=== PATIENT | female | born 1990 | race Two or more races ===

== ENCOUNTER 2020-05-18 12:59 | Outpatient (REF) | payer OTHER, SELFPAY ==
[2020-05-18 15:15] LABS: Syphilis Screen Nonreactive (Nonreactive)
[2020-05-19 04:08] LABS: HBc Num1 0.13 S/CO (0.00-0.79); HIV AB/AG Nonreactive (Nonreactive); HIV Num 1 0.07 S/CO (0.00-0.99); Hepatitis B Core Antibody Nonreactive (Nonreactive)
[2020-05-19 04:29] LABS: ~Hepatitis C Antibody Nonreactive (Nonreactive)
[2020-05-19 09:42] LABS: BV Int Neg Control Negative (Negative); BV Int Pos Control Positive (Positive)
[2020-05-26 05:53] LABS: HPV 16 RNA NOT DETECTED (NOT DETECTED); HPV mRNA E6/E7 rflx Detected (Not Detected)
[2020-06-11 14:21] LABS: CT PCR NOT DETECTED (Not Detect.); NG PCR NOT DETECTED (Not Detect.)
== END 2020-05-18 13:00 | disposition home or self-care (01) ==
LOC: HO.LAB 12:59
PROVIDERS: PCP Internal Medicine; Visit Provider Advanced Practice Midwife
DX: Z01.419 Encounter for gynecological examination (general) (routine) without abnormal findings (principal); Z20.2 Contact with and (suspected) exposure to infections with a predominantly sexual mode of transmission
CPT/HCPCS: 86704; 86780; 86803; 87389; 87480; 87491; 87510; 87591; 87624; 87625; 87660; 88141; 88142

== ENCOUNTER 2020-06-23 13:56 | Outpatient (REF) | payer OTHER, SELFPAY | END 2020-06-23 13:57 | disposition home or self-care (01) | LOC: HO.LAB 13:56 | PROVIDERS: PCP Internal Medicine; Visit Provider Obstetrics & Gynecology | DX: R87.620 Atypical squamous cells of undetermined significance on cytologic smear of vagina (ASC-US) (principal); R87.811 Vaginal high risk human papillomavirus (HPV) DNA test positive | CPT/HCPCS: 57454; 81025; 88305; 88312; 88313; 88341; 88342; 88360 ==

== ENCOUNTER → 2020-07-07 15:52 | Outpatient (BNVA) | payer OTHER, SELFPAY | PROVIDERS: PCP Internal Medicine; Visit Provider Obstetrics & Gynecology ==

== ENCOUNTER 2020-07-18 10:56 | Outpatient (REF) | payer OTHER, SELFPAY ==
--- NOTE | ~2020-07-18 | US_ITS ---
EXAMINATION: US PELVIS CLINICAL INFORMATION: Pain COMPARISON: None TECHNIQUE: Ultrasound of the pelvis is performed using both transabdominal and transvaginal transducers along with Doppler. Transvaginal imaging is performed due to inadequate visualization transabdominally. FINDINGS: The uterus is anteverted and measures 6.8 x 2.9 x 4.5 cm in dimension. There is an IUD in the uterus in satisfactory position. Endometrial thickness is normal measuring 0.3 cm. No focal uterine lesion is seen. There are nabothian cysts in the cervix. The right ovary measures 1.4 x 1.6 x 0.7 cm. The left ovary measures 3.1 x 2.2 x 1.9 cm. There is a small nonspecific 4 x 4 x 5 mm hyperechoic area in the left ovary. There is no fluid in the pelvis. US/US OB transvaginal IMPRESSION: IUD in the uterus in satisfactory position. Small 5 mm nonspecific hyperechoic area in the left ovary.
--- NOTE | ~2020-07-18 | US_ITS ---
EXAMINATION: US PELVIS CLINICAL INFORMATION: Pain COMPARISON: None TECHNIQUE: Ultrasound of the pelvis is performed using both transabdominal and transvaginal transducers along with Doppler. Transvaginal imaging is performed due to inadequate visualization transabdominally. FINDINGS: The uterus is anteverted and measures 6.8 x 2.9 x 4.5 cm in dimension. There is an IUD in the uterus in satisfactory position. Endometrial thickness is normal measuring 0.3 cm. No focal uterine lesion is seen. There are nabothian cysts in the cervix. The right ovary measures 1.4 x 1.6 x 0.7 cm. The left ovary measures 3.1 x 2.2 x 1.9 cm. There is a small nonspecific 4 x 4 x 5 mm hyperechoic area in the left ovary. There is no fluid in the pelvis. US/US pelvic complete IMPRESSION: IUD in the uterus in satisfactory position. Small 5 mm nonspecific hyperechoic area in the left ovary.
== END 2020-07-18 10:57 | disposition home or self-care (01) ==
LOC: HO.US 10:56
PROVIDERS: Visit Provider Obstetrics & Gynecology
DX: R10.2 Pelvic and perineal pain (principal)
CPT/HCPCS: 76817; 76830; 76856

== ENCOUNTER 2020-07-25 10:15 | Outpatient (REF) | payer OTHER, SELFPAY | END 2020-07-25 10:16 | disposition home or self-care (01) | LOC: HO.LAB 10:15 | PROVIDERS: PCP Internal Medicine; Visit Provider Obstetrics & Gynecology | DX: N87.0 Mild cervical dysplasia (principal) | CPT/HCPCS: 57455; 81025; 88305 ==

== ENCOUNTER → 2020-08-08 12:13 | Outpatient (BNVA) | payer OTHER, SELFPAY | PROVIDERS: PCP Internal Medicine; Visit Provider Obstetrics & Gynecology ==

== ENCOUNTER 2021-05-23 12:48 | Outpatient (REF) | payer OTHER, SELFPAY ==
[2021-05-24 03:42] LABS: Syphilis Screen Nonreactive (Nonreactive)
[2021-05-24 03:52] LABS: HBc Num1 0.15 S/CO (0.00-0.79); HIV AB/AG Nonreactive (Nonreactive); HIV Num 1 0.09 S/CO (0.00-0.99); Hepatitis B Core Antibody Nonreactive (Nonreactive)
[2021-05-24 04:03] LABS: CT PCR NOT DETECTED (Not Detect.); NG PCR NOT DETECTED (Not Detect.)
[2021-05-24 04:06] LABS: ~HepC Num1 0.19 S/CO (0.00-0.79); ~Hepatitis C Antibody Nonreactive (Nonreactive)
[2021-05-24 09:36] LABS: BV Int Neg Control Negative (Negative); BV Int Pos Control Positive (Positive)
[2021-05-26 02:22] LABS: HPV mRNA E6/E7 rflx Not Detected (Not Detected)
== END 2021-05-23 12:49 | disposition home or self-care (01) ==
LOC: HO.LAB 12:48
PROVIDERS: PCP Internal Medicine; Visit Provider Advanced Practice Midwife
DX: Z01.411 Encounter for gynecological examination (general) (routine) with abnormal findings (principal); Z11.51 Encounter for screening for human papillomavirus (HPV); Z11.4 Encounter for screening for human immunodeficiency virus [HIV]; N89.8 Other specified noninflammatory disorders of vagina; L70.9 Acne, unspecified; Z20.2 Contact with and (suspected) exposure to infections with a predominantly sexual mode of transmission
CPT/HCPCS: 36415; 81003; 81025; 86704; 86780; 86803; 87389; 87480; 87491; 87510; 87591; 87624; 87660; 88142

== ENCOUNTER 2022-01-08 13:52 | Outpatient (REF) | payer OTHER, SELFPAY ==
[2022-01-09 04:28] LABS: CT PCR NOT DETECTED (Not Detect.); NG PCR NOT DETECTED (Not Detect.)
[2022-01-09 09:05] LABS: BV Int Neg Control Negative (Negative); BV Int Pos Control Positive (Positive)
== END 2022-01-08 13:53 | disposition home or self-care (01) ==
LOC: HO.LAB 13:52
PROVIDERS: PCP Internal Medicine; Visit Provider Advanced Practice Midwife
DX: Z11.3 Encounter for screening for infections with a predominantly sexual mode of transmission (principal); B37.3 Candidiasis of vulva and vagina; N89.8 Other specified noninflammatory disorders of vagina
CPT/HCPCS: 87480; 87491; 87510; 87591; 87660; 99212

== ENCOUNTER 2022-04-30 10:37 | Outpatient (REF) | payer OTHER, SELFPAY ==
[2022-04-30 12:41] LABS: HBc Num1 0.13 S/CO (0.00-0.79); HIV AB/AG Nonreactive (Nonreactive); HIV Num 1 0.07 S/CO (0.00-0.99); Hepatitis B Core Antibody Nonreactive (Nonreactive); ~HepC Num1 0.13 S/CO (0.00-0.79); ~Hepatitis C Antibody Nonreactive (Nonreactive)
[2022-04-30 12:42] LABS: Syphilis Screen Nonreactive (Nonreactive)
[2022-04-30 15:47] LABS: CT PCR NOT DETECTED (Not Detect.); NG PCR NOT DETECTED (Not Detect.)
[2022-05-01 08:55] LABS: BV Int Neg Control Negative (Negative); BV Int Pos Control Positive (Positive)
== END 2022-04-30 10:38 | disposition home or self-care (01) ==
LOC: HO.LAB 10:37
PROVIDERS: PCP Internal Medicine; Visit Provider Advanced Practice Midwife
DX: N89.8 Other specified noninflammatory disorders of vagina (principal); R10.2 Pelvic and perineal pain; Z11.3 Encounter for screening for infections with a predominantly sexual mode of transmission; Z20.2 Contact with and (suspected) exposure to infections with a predominantly sexual mode of transmission
CPT/HCPCS: 36415; 86704; 86780; 86803; 87389; 87480; 87491; 87510; 87591; 87660; 99212

== ENCOUNTER 2022-06-11 10:40 | Outpatient (REF) | payer OTHER, SELFPAY ==
--- NOTE | ~2022-06-11 | US_ITS ---
EXAMINATION: US PELVIS CLINICAL INFORMATION: Pelvic and perineal pain. COMPARISON: None. TECHNIQUE: Ultrasound of the pelvis is performed using both transabdominal and transvaginal transducers along with Doppler. Transvaginal imaging is performed due to inadequate visualization transabdominally. FINDINGS: Uterus: The uterus is anteverted, anteflexed and measures 8.3 cm in length, 3.4 cm in AP and 3.8 cm transverse dimension There is an IUD within the endometrial canal limiting evaluation of endometrial thickness. The uterus is smooth in contour and has normal myometrial echogenicity. No visible fibroid. Adnexa: The right ovary is not visualized. The left ovary measures 3.2 x 2.1 x 2.7 cm and volume 14.0 mL. There is an anechoic cyst measuring 1.6 x 1.2 x 1.5 cm. There are small round echogenic lesion measuring 0.7 x 0.6 x 0.7 cm. There is no free fluid in cul-de-sac. US/US pelvic and transvaginal IMPRESSION: Unremarkable uterus. IUD is visualized limiting endometrial evaluation. The right ovary is not visualized. There is a small anechoic cyst and a hyperechoic round lesion nonspecific may represent calcification in left ovary. It is stable.
== END 2022-06-11 10:41 | disposition home or self-care (01) ==
LOC: HO.US 10:40
PROVIDERS: Visit Provider Advanced Practice Midwife
DX: R10.2 Pelvic and perineal pain (principal)
CPT/HCPCS: 76830; 76856

== ENCOUNTER 2022-06-18 11:11 | Outpatient (REF) | payer OTHER, SELFPAY ==
[2022-06-19 05:28] LABS: CT PCR NOT DETECTED (Not Detect.); NG PCR NOT DETECTED (Not Detect.)
[2022-06-19 09:42] LABS: BV Int Neg Control Negative (Negative); BV Int Pos Control Positive (Positive)
== END 2022-06-18 11:12 | disposition home or self-care (01) ==
LOC: HO.LAB 11:11
PROVIDERS: PCP Internal Medicine; Visit Provider Advanced Practice Midwife
DX: R10.2 Pelvic and perineal pain (principal); N89.8 Other specified noninflammatory disorders of vagina; R93.5 Abnormal findings on diagnostic imaging of other abdominal regions, including retroperitoneum; Z71.2 Person consulting for explanation of examination or test findings
CPT/HCPCS: 0353U; 87480; 87510; 87660; 99212

== ENCOUNTER 2022-06-18 12:37 | Outpatient (REF) | payer OTHER, SELFPAY | END 2022-06-18 12:38 | disposition home or self-care (01) | LOC: HO.LNP 12:37 | PROVIDERS: Visit Provider Advanced Practice Midwife | DX: Z13.89 Encounter for screening for other disorder (principal) ==

== ENCOUNTER 2022-07-05 09:42 | Outpatient (REF) | payer OTHER, SELFPAY ==
--- NOTE | ~2022-07-05 | MR_ITS ---
EXAMINATION: MRI PELVIS WITH AND WITHOUT CONTRAST CLINICAL INFORMATION: Reason for Exam R93.5 - ANECHOIC CYST HYPERECHOIC ROUND LESION LEFT OVARY COMPARISON: Ultrasound from 06/11/2022 TECHNIQUE: Multiple routine MRI sequences through the pelvis were obtained on a high-field 1.5 Lav[place] MRI before and after the uneventful administration of 8 mL of Gadavist gadolinium-based IV contrast. FINDINGS: UTERUS: Anteverted uterus has a normal configuration and measures 8.5 cm [id number] x 3.6 cm anterior-posterior x 5 cm transverse. No abnormal endometrial thickening. There is an IUD in place in normal positioning. Junctional zone is normal in signal and thickness. No focal uterine mass seen. CERVIX: Normal. VAGINA: Normal; no mass seen. RIGHT OVARY: The right ovary is not clearly visualized. There is no right adnexal mass. LEFT OVARY: The left ovary measures 2.8 x 2.3 x 2.2 cm. There are multiple follicles identified in the ovary. The dominant measures 1.8 cm and has somewhat mixed signal, showing central increased signal with more peripheral thickened wall. This could be a corpus luteum. There is no suspicious mass identified. No definite correlate to the subcentimeter hyperechoic focus in on prior ultrasound. Stability of this finding over time is reassuring. This could be a small dermoid that is not well resolved on the MRI given the size. KIDNEYS: Two normally positioned kidneys are seen. No hydronephrosis. BLADDER: Urinary bladder normal. PELVIC FREE FLUID: Trace pelvic free fluid which is likely physiologic. LYMPH NODES: No pathologically enlarged lymph nodes. OSSEOUS STRUCTURES: No acute or suspicious osseous abnormalities. MR/MR pelvis wo/w con IMPRESSION: 1. No suspicious left ovarian mass. There are multiple follicles identified in the left ovary. No definite correlate to the subcentimeter hyperechoic focus in the left ovary on prior ultrasound. Stability of this finding over time is reassuring. This could be a small dermoid that is not well resolved on the MRI. If clinically indicated this could be followed with ultrasound, as visualized. 2. IUD in place in normal positioning.
== END 2022-07-05 09:43 | disposition home or self-care (01) ==
LOC: HO.MRI 09:42
PROVIDERS: PCP Internal Medicine; Visit Provider Advanced Practice Midwife
DX: R93.5 Abnormal findings on diagnostic imaging of other abdominal regions, including retroperitoneum (principal)
CPT/HCPCS: 72197; A9585

== ENCOUNTER 2022-08-08 11:01 | Outpatient (REF) | payer OTHER, SELFPAY ==
[2022-08-09 09:38] LABS: BV Int Neg Control Negative (Negative); BV Int Pos Control Positive (Positive)
== END 2022-08-08 11:02 | disposition home or self-care (01) ==
LOC: HO.LAB 11:01
PROVIDERS: PCP Internal Medicine; Visit Provider Advanced Practice Midwife
DX: N89.8 Other specified noninflammatory disorders of vagina (principal)
CPT/HCPCS: 87480; 87510; 87660

== ENCOUNTER 2022-08-08 11:48 | Outpatient (REF) | payer OTHER, SELFPAY ==
[2022-08-14 10:03] LABS: HPV mRNA E6/E7 rflx Detected (Not Detected)
[2022-08-14 10:08] LABS: HPV 16 RNA NOT DETECTED (NOT DETECTED)
== END 2022-08-08 11:49 | disposition home or self-care (01) ==
LOC: HO.LNP 11:48
PROVIDERS: Visit Provider Advanced Practice Midwife
DX: Z01.419 Encounter for gynecological examination (general) (routine) without abnormal findings (principal); Z11.51 Encounter for screening for human papillomavirus (HPV)
CPT/HCPCS: 87624; 87625; 88142

== ENCOUNTER 2022-11-27 13:21 | Outpatient (REF) | payer OTHER, SELFPAY ==
--- NOTE | ~2022-11-27 | US_ITS ---
EXAM: Pelvic Ultrasound CLINICAL INDICATION: Benign neoplasm left ovary COMPARISON: Pelvic MRI 07/05/2022 and pelvic ultrasound 06/11/2022 TECHNIQUE: The pelvis was evaluated using transabdominal and transvaginal imaging. FINDINGS: The uterus measures 8.3 x 4.0 x 4.9 cm in longitudinal by AP by transverse dimension. Linear echogenic structure within the endometrium is consistent with a properly placed IUD. The endometrium measures approximately 3 mm in thickness. The left ovary measures approximately 3.1 x 2.2 x 2.1 cm and is again noted to contain a 9 mm echogenic lesion (previously 7 mm). There is also a suspected approximately 1.6 cm corpus luteum within the left ovary. The right ovary was not clearly visualized. There is no free fluid in the pelvis. US/US pelvic and transvaginal IMPRESSION: 1. Linear echogenic structure within the endometrium is consistent with a properly placed IUD. 2. Slight interval increase in size of now 9 mm echogenic lesion of the left ovary. Continued attention on follow-up imaging recommended.
== END 2022-11-27 13:22 | disposition home or self-care (01) ==
LOC: HO.US 13:21
PROVIDERS: PCP Internal Medicine; Visit Provider Advanced Practice Midwife
DX: D27.1 Benign neoplasm of left ovary (principal)
CPT/HCPCS: 76830; 76856

== ENCOUNTER 2022-12-21 14:06 | Outpatient (AMB) | payer OTHER, SELFPAY ==
[2022-12-21 14:20] VITALS: BP 114/68; BMI 28.7
--- NOTE | 2022-12-21 14:20 | MHC.OFFVIS ---
Intake Vital Signs 12/21/22 14:20 Height 5 ft 6 in Weight 178 lb BMI 28.7 BP 114/68 Intake Visit Reasons: Ultra sound follow up Intake Note: The patient agreed to use of a associate medical director during this encounter. Scribed for RAFFAELE Dixon by Geovanna Lorenzo associate medical director, on 12/21/2022 at 2:50 pm EST. Musical Instrument Mechanic Required: No Allergies No Known Allergies [No Known Allergies*] Allergy (Verified 12/21/22 14:21) Is last menstrual period known: No Post menopausal: No HPI HPI Comments History of Present Illness Details She is here to discuss US results regarding dermoid cyst of left ovary. Reports occasional pelvic pain. She is interested in knowing her options of removal and reports she has done her research on fibroids. [facility] Medical History Cervicitis [place] I (cervical intraepithelial neoplasia I) Dermoid cyst of left ovary IUD strings lost Surgical History H/O ovarian cystectomy History of appendectomy Hx of cholecystectomy LAP-BAND surgery status Family History Mother High blood pressure Hyperlipemia Father High blood pressure Social History Alcohol intake: never Patient Tobacco Use Status: Never used Tobacco Substance Use Type: Marijuana Sexual orientation: Straight/Heterosexual Female Reproductive History Menstrual Age of Menarche: 10 control method: progestin IUCD Date of last pap smear: 08/08/22 (ASCUS +HPV) History of abnormal pap smear: Yes Physical Exam Vital Signs: Last Vital Signs BP 114/68 12/21/22 14:20 BMI result Body Mass Index 28.7 Const General: cooperative, healthy appearing, comfortable, no acute distress, well developed, alert and awake Results Reviewed Results Reviewed: EXAM: Pelvic Ultrasound CLINICAL INDICATION: Benign neoplasm left ovary COMPARISON: Pelvic MRI 07/05/2022 and pelvic ultrasound 06/11/2022 TECHNIQUE:? The pelvis was evaluated using transabdominal and transvaginal imaging. FINDINGS: The uterus measures 8.3 x 4.0 x 4.9 cm in longitudinal by AP by transverse dimension. Linear echogenic structure within the endometrium is consistent with a properly placed IUD. The endometrium measures approximately 3 mm in thickness. The left ovary measures approximately 3.1 x 2.2 x 2.1 cm and is again noted to contain a 9 mm echogenic lesion (previously 7 mm). There is also a suspected approximately 1.6 cm corpus luteum within the left ovary. The right ovary was not clearly visualized. There is no free fluid in the pelvis. US/US pelvic and transvaginal IMPRESSION: 1.? Linear echogenic structure within the endometrium is consistent with a properly placed IUD. 2.? Slight interval increase in size of now 9 mm echogenic lesion of the left ovary. Continued attention on follow-up imaging recommended. Assessment & Plan Assessment & Plan (1) Encounter to discuss test results: Code(s): Z71.2 - Person consulting for explanation of examination or test findings Plan: Discussed: US findings of: 1.? Linear echogenic structure within the endometrium is consistent with a properly placed IUD. 2.? Slight interval increase in size of now 9 mm echogenic lesion of the left ovary. Continued attention on follow-up imaging recommended. Referral consult with [facility] regarding dermoid cyst. All of her questions and concerns were addressed to the best of my ability and shared decision making. She is agreeable to plan of care. (2) Pelvic pain: Code(s): R10.2 - Pelvic and perineal pain (3) Dermoid cyst of left ovary: Code(s): D27.1 - Benign neoplasm of left ovary Orders: Referrals Gynecologic Oncology Referral D27.1 - Benign neoplasm of left ovary Coding Level of Care Code Est Pt Level 3 (46683) Diagnoses Encounter to discuss test results Z71.2 Pelvic pain R10.2 Dermoid cyst of left ovary D27.1
== END 2022-12-21 15:03 | disposition home or self-care (01) ==
LOC: HO.HWS 14:06
PROVIDERS: PCP Internal Medicine; Visit Provider Advanced Practice Midwife
DX: Z71.2 Person consulting for explanation of examination or test findings (principal); R10.2 Pelvic and perineal pain; D27.1 Benign neoplasm of left ovary
CPT/HCPCS: 99213

== ENCOUNTER → 2022-12-21 14:06 | Outpatient (BNVA) | payer OTHER, SELFPAY | PROVIDERS: PCP Internal Medicine; Visit Provider Advanced Practice Midwife | DX: Z71.2 Person consulting for explanation of examination or test findings (principal); R10.2 Pelvic and perineal pain; D27.1 Benign neoplasm of left ovary | CPT/HCPCS: 99212 ==

== ENCOUNTER 2023-08-28 10:01 | Outpatient (AMB) | payer OTHER, SELFPAY ==
--- NOTE | 2023-08-28 10:03 | MHC.OFFVIS ---
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 Doing well with no concerns. She is taking antibiotics for her acne and feels like she has a yeast infection. She reports follow up at [facility] and MRI planned for her ovarian lesion, seeing her provider next week. Per pt. she was diagnosed with endometriosis and fibrosis. She tries to eat healthy and stays active with exercise. Currently is sexually active. STI screening offered; she accepts. Denies family history of breast, ovarian or colon cancer. Last pap smear 2022, ASCUS/+HPV, prior CINI. [facility] Medical History Dermoid cyst of left ovary IUD strings lost Cervicitis [place] I (cervical intraepithelial neoplasia I) Surgical History Hx of cholecystectomy H/O ovarian cystectomy LAP-BAND surgery status History of appendectomy Family History Mother High blood pressure Hyperlipemia Father High blood pressure Social History Alcohol intake: never Patient Tobacco Use Status: Never used Tobacco Substance Use Type: Marijuana Sexual orientation: Straight/Heterosexual Female Reproductive History Menstrual Age of Menarche: 10 control method: progestin IUCD (Mirena 03/19/18) Total pregnancies: 1 Full term: 1 Number of Living Children: 1 Date of last pap smear: 08/08/22 (ascus +hpv) History of abnormal pap smear: Yes (05/22 ascus +hpv 06/23 colpo [place] 1) Review of Systems Const All systems reviewed & are unremarkable except as noted in HPI and below Reports as per HPI Eyes Reports no additional complaints ENT Reports no additional complaints Card Reports no additional complaints Resp Reports no additional complaints GI Reports as per HPI and Reports no additional complaints Reports as per HPI Musc Reports no additional complaints Skin/Breast Reports as per HPI Neuro Reports no additional complaints Psych Reports no additional complaints Endo Reports no additional complaints Javier/Lymph Reports no additional complaints Aller/Immun Reports no additional complaints Physical Exam Vital Signs: Last Vital Signs BP 112/74 08/28/23 10:05 BMI result Body Mass Index 28.7 Const General: cooperative, healthy appearing, no acute distress, well developed and alert Orientation/consciousness: patient oriented x3 HEENT Head: Yes normal to inspection Eyes General: appearance normal, both eyes and all related structures Neck Neck: Yes normal visual inspection Thyroid: Thyroid normal Chest Chest palpation & inspection: normal inspection of the chest and other (no puckering, dimpling, peau de orange, retraction, discharge, masses) Breast/axilla inspection: normal inspection of the breasts Breast/axilla palpation: normal palpation of the breasts Resp Effort & Inspection: normal respiratory effort GI Inspection: Yes normal to inspection Palpation (GI): Soft to palpation Rectal Exam - Female: deferred Other: External erythema and mild edema General: Yes bladder normal to palpation External Female Exam: normal external appearance and normal appearance of the urethra Speculum Exam - Vagina: normal appearance of the vagina, normal palpation and abnormal vaginal discharge (White and clumpy) Speculum Exam - Cervix: normal appearance of the cervix and normal palpation Bimanual exam- vagina & uterus: normal bimanual exam, normal palpation, uterine size normal, bladder normal to palpation, normal palpation and non-tender Bimanual Exam- Adnexa, other: no masses Skin General skin exam: no rashes or lesions noted Rashes: no rashes Neuro General: patient oriented x3 Cognition (Neuro): normal cognition Extrem General: Yes normal to inspection Psych Attitude: cooperative Thought process: Normal thought process present Assessment & Plan Assessment & Plan (1) Encounter for well woman exam with routine gynecological exam: Code(s): Z01.419 - Encounter for gynecological examination (general) (routine) without abnormal findings (2) Abnormal Pap smear of cervix: Code(s): R87.619 - Unspecified abnormal cytological findings in specimens from cervix uteri Qualifiers: Abnormal Pap type: low grade squamous intraepithelial lesion (LGSIL) Qualified Code(s): R87.612 - Low grade squamous intraepithelial lesion on cytologic smear of cervix (LGSIL) Plan Discussed: Current recommendations for pap smears per ASCCP guidelines. Repeat Pap today. Breast awareness and periodic breast exams. Maintain a healthy lifestyle including a well balanced diet and routine exercise. Find STD blood work. Patient having MRI, if for some reason it is canceled she agrees to call the office to have an ultrasound to determine IUD position. Rx for Diflucan for treatment for yeast symptoms today. Patient verbalizes understanding and agrees to the plan of care. She was given opportunity to ask questions and all questions were answered to the best of my ability. RTO in one year for annual arch support technician examination. This note is constructed using voice recognition software. While every effort has been made to ensure accuracy, log washer errors may have been included. Orders: Orders Bacterial Vaginosis Panel Today N89.8 - Other specified noninflammatory disorders of vagina CT NG by PCR Today N89.8 - Other specified noninflammatory disorders of vagina Pap Smear Today Z01.419 - Encounter for gynecological examination (general) (routine) without abnormal findings Medications: New fluconazole 150 mg PO ONCE 1 day PRN 1 tab 0RF personal Coding Level of Care Code Est Pt Prev Care 18-39y(45002) Diagnoses Encounter for well woman exam with routine gynecological exam Z01.419 Low grade squamous intraepithelial lesion on cytologic smear of cervix (LGSIL) R87.612 Abnormal Pap type: low grade squamous intraepithelial lesion (LGSIL)
[2023-08-28 10:05] VITALS: BP 112/74; BMI 28.7
== END 2023-08-28 10:38 | disposition home or self-care (01) ==
PROVIDERS: PCP Internal Medicine; Visit Provider Advanced Practice Midwife
DX: Z01.419 Encounter for gynecological examination (general) (routine) without abnormal findings (principal); R87.612 Low grade squamous intraepithelial lesion on cytologic smear of cervix (LGSIL)
CPT/HCPCS: 99395

== ENCOUNTER 2023-08-28 10:01 | Outpatient (REF) | payer OTHER, SELFPAY ==
[2023-08-28 18:31] LABS: CT PCR NOT DETECTED (Not Detect.); NG PCR NOT DETECTED (Not Detect.)
[2023-08-29 11:31] LABS: BV Int Neg Control Negative (Negative); BV Int Pos Control Positive (Positive)
== END 2023-08-28 10:02 | disposition home or self-care (01) ==
LOC: HO.LAB 10:01
PROVIDERS: Visit Provider Advanced Practice Midwife
DX: Z01.419 Encounter for gynecological examination (general) (routine) without abnormal findings (principal); N89.8 Other specified noninflammatory disorders of vagina; R87.612 Low grade squamous intraepithelial lesion on cytologic smear of cervix (LGSIL)
CPT/HCPCS: 0353U; 87480; 87510; 87660; 99395

== ENCOUNTER 2023-08-28 10:31 | Outpatient (REF) | payer OTHER, SELFPAY ==
[2023-09-04 03:29] LABS: HPV mRNA E6/E7 rflx Not Detected (Not Detected)
== END 2023-08-28 10:32 | disposition home or self-care (01) ==
LOC: HO.LNP 10:31
PROVIDERS: Visit Provider Advanced Practice Midwife
DX: Z01.419 Encounter for gynecological examination (general) (routine) without abnormal findings (principal); N89.8 Other specified noninflammatory disorders of vagina
CPT/HCPCS: 87624; 88142

== ENCOUNTER 2023-12-24 14:21 | Outpatient (AMB) | payer OTHER, SELFPAY ==
--- OUTSIDE RECORDS SUMMARY | 2023-12-24 14:23 | XMS_ITS | Continuity of Care Document ---
Author Organization [facility] Destiny [facility] Address [address], [address] [place] [address]- Care Team Providers Care Ichthyologist Name Role Phone José Antonio AG, Charlene Guido Primary Care Physician [place] [facility] [place]23 [facility] [address], [address] [place], [place] [address] Attending Physician: Lu Garrido MD Admitting Physician: Lu Garrido MD Referring Physician: Jamia Desai MD Allergies, Adverse Reactions, Alerts No Known Allergies Immunizations Given and Recorded Vaccine Date Status Refusal Reason Influenza Vaccine (oldterm) 1 03/18/08 Given Human Papillomavirus Vaccine 10/14/07 Given Human Papillomavirus Vaccine 03/06/07 Given Human Papillomavirus Vaccine 11/26/06 Given Hepatitis B Vaccine (old term) 2 08/31/04 Given Hepatitis B Vaccine (old term) 3 06/29/04 Given Hepatitis B Vaccine (old term) 4 02/04/04 Given Varicella Virus Vaccine 5 06/29/04 Given Varicella Virus Vaccine 6 02/04/04 Given Poliovirus Vaccine, Inactivated 7 06/29/04 Given Poliovirus Vaccine, Inactivated 8 06/23/90 Given Poliovirus Vaccine, Inactivated 9 04/23/90 Given Poliovirus Vaccine, Inactivated 10 02/19/90 Given Measles/Mumps/Rubella Virus Vaccine 11 02/04/04 Gi ronald Measles/Mumps/Rubella Virus Vaccine 12 10/14/92 Gi ronald tetanus-diphtheria toxoids (Td) 13 02/04/04 Given Diphth/Pertussis, Whl Cell/Tet(oldterm) 14 06/23/90 Given Diphth/Pertussis, Whl Cell/Tet(oldterm) 15 04/23/90 Given Diphth/Pertussis, Whl Cell/Tet(oldterm) 16 02/19/90 Given 1Admin Note: VIS GIven 2Admin Note: HEP B 3Admin Note: HEP B 4Admin Note: HEP B 5Admin Note: FAYE 6Admin Note: FAYE 7Admin Note: IPV/OPV 8Admin Note: IPV/OPV 9Admin Note: IPV/OPV 10Admin Note: IPV/OPV 11Admin Note: MMR 12Admin Note: MMR 13Admin Note: TD 14Admin Note: DTP 15Admin Note: DTP 16Admin Note: DTP Medications amitriptyline 25 mg oral tablet 1 tablet = 25 mg, By Mouth, Daily at bedtime, 0 Refills, Maintenance Start Date: 01/31/11 Status: Ordered Colace sodium 100 mg oral capsule 1 capsule = 100 mg, By Mouth, 2 times a day, PRN Constipation, # 20 capsule, 0 Refills, Maintenance Start Date: 04/17/11 Status: Ordered ibuprofen 600 mg oral tablet 600 mg, 1, tablet, By Mouth, Every 6 hours, # 40 tablet, Refills 0, Tot. Refills 0, Maintenance, 01/23/16 15:17:50, Print Requisition Start Date: 01/23/16 Status: Ordered Pt.'s Own Meds control pill, By Mouth, Daily, Maintenance, 06/12/11 9:07:09 Start Date: 06/12/11 Status: Ordered Problem List Condition Confirmation Course Effective Dates Status Health St atus Informant Ovarian cyst Confirmed Active LBP - Low back pain Confirmed Active OBESITY Confirmed Active Social History Social History Type Response Smoking Status Never (less than 100 in lifetime) entered on: 01/02/23 Sex Patient Care team information Care Team Personnel Name: Hamlet Barkley MD Position: [facility] SOUND CONTROLLER Member Role: Lifetime SOUND CONTROLLER Physician Address: Address: [address] [place], [place] [address] [place] [address]- Name: Charlene Chou NP Position: Reference Physician Member Role: PCP Address: Address: [address] [place] [id number] Name: Yesenia Navarrete Position: [facility] Outreach Member Role: Lifetime Consulting Physician Name: Erica Chavez Position: [facility] Member Role: Primary Care Nurse Care Team Related Persons Name: TITO KRUGER Address: [place] [address] Name: NAMITA MARSHALL Address: home [address] [place] [address] Name: PETRONA KHAN Name: KARLI HART Address: [place] [address]
--- OUTSIDE RECORDS SUMMARY | 2023-12-24 14:23 | XMS_ITS ---
Author Organization [facility] Address [address] [place] [id number] Care Team Providers Care Cargo Mate Name Role Phone JANICE LIZARRAGA, JAKOB Primary Care Provider U RASHMI Resendiz Unavailable [phone] REASON FOR VISIT rfa Medications Medication SIG (Take, Route, Frequency, Duration) Notes Start Date End Date Status diazePAM 10 MG 1 - 2 tablet as needed Orally 1 hour prior to the procedure for 2 days As needed M47.816 Lumbar spondylosis, the patient can request partial refill do not drive after taking this medicine, take after arriving to the pain clinic for the procedure 03/20/2023 Active PriLOSEC OTC 20 MG 1 tablet 30 minutes before morning meal Orally Once a day Active Trey-In-Marlen 75 (15 Fe) MG/ML as directed Orally Active Encounters Encounter Location Date Provider Diagnosis [facility] [address] [place] [phone] 04/06/2023 RASHMI NIELSEN Plan Of Treatment No Information Progress Notes * FRED MARSHALLDOB: 0 (33 yo F)Acc No.[id number]:04/06/2023 Progress Notes Patient:?FRED MARSHALL Provider:?Rashmi Nielsen MD :1990???Age:32 Y???Sex:Female D ate:04/06/2023 Address:[address] [place], [place] [id number] Pcp:JAKOB CAMACHO MD Subjective: * Chief Complaints: * ???1. Rfa. * Medical History:? * Medications:?Taking Trey-In-S ol 75 (15 Fe) MG/ML Solution as directed Orally , Taking PriLOSEC OTC 20 MG Tablet Delayed Release 1 tablet 30 minutes before morning meal Orally Once a day , Taking diazePAM 10 MG Tablet 1 - 2 tablet as needed Orally 1 hour prior to the procedure As needed, Notes to Pharmacist: M47.816 Lumbar spondylosis, the patient can request partial refill do not drive after taking this medicine, take after arriving to the pain clinic for the procedure Objective: * Vitals:? Assessment: Plan: * Treatment: * Images: * Electronic signature of REZA MARVIN MD on 12/24/2023 at 02:23 PM EDT Sign off status: Pending * Provider:?Rashmi Nielsen MD Date:? 023 Generated for Beti simmons/Karen/Carmen on:?12/24/2023 02:23 PM EDT
--- OUTSIDE RECORDS SUMMARY | 2023-12-24 14:23 | XMS_ITS | Continuity of Care Document ---
[facility] Address [address] [facility] [address], [address] [place] [address]- Care Team Providers Care Imaging Account Manager Name Role Phone José Antonio AG, Charlene Guido Primary Care Physician [facility] [place] Date(s): 01/28/23 - 02/27/23 [facility] [address] [facility] [place], [place] [address] Attending Physician: Rachelle Ordonez Admitting Physician: Rachelle Ordonez Referring Physician: AdmtrRachelle Allergies, Adverse Reactions, Alerts No Known Allergies [...] Team Personnel Name: Hamlet Barkley MD Position: [facility] DEPOSITING MACHINE OPERATOR Member Role: Lifetime DEPOSITING MACHINE OPERATOR Physician Address: Address: [address] [place], [place] [address] [place] [address]- Name: Charlene Chou NP Position: Reference Physician Member Role: PCP Address: Address: [address] [place] [id number] Name: Yesenia Navarrete Position: [facility] Outreach Member Role: Lifetime Consulting Physician Name: Erica Chavez Position: [facility] Member Role: Primary Care Nurse Care Team Related Persons Name: TITO KRUGER Address: [place] [address] Name: NAMITA MARSHALL Address: home [address] [place] [address] Name: PETRONA KHAN Name: KARLI HART Address: [place] [address]
--- OUTSIDE RECORDS SUMMARY | 2023-12-24 14:23 | XMS_ITS | Continuity of Care Document ---
Author Organization [facility] Destiny Yost n's [facility] Address [address], 4t [place] [address]- Care Team Providers Care Back Roller Name Role Phone José Antonio AG, Charlene Guido Primary Care Physician [phone] Encounter [facility] ACCT R [id number] Date(s): 10/14/23 - 11/13/23 [facility] Destiny Womenhiyalifes [facility] [address] 4th Floor [place], [place] [address] Attending Physician: Rachelle Ordonez Admitting Physician: Rachelle [...] Care team information Care Team Personnel Name: Filippo LIZARRAGA, Hamlet Cortes Position: [facility] OPTICAL SALES ASSOCIATE MD Member Role: Lifetime OPTICAL SALES ASSOCIATE Physician Address: Address: [address] [place], [place] [address] [address]- Name: Charlene Chou NP Position: Reference Physician Member Role: PCP Address: Address: [address] [place] [address] Medical [place], [place] [address] Name: Yesenia Navarrete Position: [facility] Outreach Member Role: Lifetime Consulting Physician Name: Erica Chavez Position: [facility] Member Role: Primary Care Nurse Care Team Related Persons Name: MOISÉS LOTT Address: home [address] [address] Name: TITO KRUGER Address: [place] [address] Name: NAMITA MARSHALL Address: home [address] [place] [address] Name: PETRONA KHAN Name: KARLI HART Address: [place] [address]
--- OUTSIDE RECORDS SUMMARY | 2023-12-24 14:23 | XMS_ITS | Continuity of Care Document ---
Author Organization [facility] FABRIC AND ACCESSORIES ESTIMATOR Oncolog y Address [address] [place] [address]- Care Team Providers Care School Athletic Director Name Role Phone José Antonio AG, Charlene Guido Primary Care Physician [phone] Encounter [facility] Date(s): 03/22/23 - 04/21/23 [facility] FABRIC AND ACCESSORIES ESTIMATOR Oncology [address] [place], [place] [address] Attending Physician: Rachelle Ordonez Admitting Physician: AdmRachelle thompson Referring Physician: Admtr, Ar8 Allergies, Adverse Reactions, Alerts No Known Allergies [...] Personnel Name: Filippo LIZARRAGA, Hamlet Cortes Position: [facility] QA AUTOMATION ARCHITECT MD Member Role: Lifetime QA AUTOMATION ARCHITECT Physician Address: Address: [address] [place], [place] [address] [place], [place] [address] Name: Charlene Chou NP Position: Reference Physician Member Role: PCP Address: Address: [address] [place] [address] [place], [place] [address] Name: Yesenia Navarrete Position: [facility] Outreach Member Role: Lifetime Consulting Physician Name: Erica Chavez Position: [facility] [place] Member Role: Primary Care Nurse Care Team Related Persons Name: MOISÉS LOTT Address: home [address] [place] [address] Name: TITO KRUGER Address: [place] [address] Name: NAMITA MARSHALL Address: home [address] [place] [address] Name: PETRONA KHAN Name: KARLI HART Address: [place] [address]
--- OUTSIDE RECORDS SUMMARY | 2023-12-24 14:23 | XMS_ITS ---
Author Organization [facility] Address [address] [place] [address] Care Team Providers Care Filter Press Pumper Name Role Phone JANICE LIZARRAGA, JAKOB Primary Care Provider U LOY Resendiz Unavailable [phone] Encounters Encounter Location Date Provider Diagnosis [facility] [address] [place] [address] 03/06/2023 LOY NIELSEN Plan Of Treatment No Information Progress Notes * FRED MARSHALLDOB: 0 (33 yo F)Acc No.[id number]:03/06/2023 Patient:?FRED MARSHALL :1990???Age:32 Y???Sex:Female Address:[address] [place] [address], [address] * * Date:?
--- OUTSIDE RECORDS SUMMARY | 2023-12-24 14:23 | XMS_ITS | Continuity of Care Document ---
Author Organization [facility] Destiny Yost n's [facility] Address [address], 4t [place] [address]- Care Team Providers Care Waxing Machine Operator Helper Name Role Phone José Antonio AG, Charlene Guido Primary Care Physician Encounter [facility] Date(s): 06/04/23 - 10/02/23 [facility] Destiny Kochs [facility] [address] 4th Floor [place], [place] [address] Attending Physician: Lu Garrido MD Admitting Physician: Lu Garrido MD Referring Physician: Charlene Chou NP Allergies, Adverse Reactions, Alerts No Known Allergies [...] Team Personnel Name: Hamlet Barkley MD Position: [facility] TILER'S ASSISTANT Member Role: Lifetime TILER'S ASSISTANT Physician Address: Address: [address] [place] [address]- Name: Charlene Chou NP Position: Reference Physician Member Role: PCP Address: Address: [address] [place] [address] Name: Yesenia Navarrete Position: [facility] Outreach Member Role: Lifetime Consulting Physician Name: Erica Chavez Position: [facility] [place] Member Role: Primary Care Nurse Care Team Related Persons Name: MOISÉS LOTT Address: home [address] [address] Name: TITO KRUGER Address: [place] [address] Name: NAMITA MARSHALL Address: home [address] [place] [address] Name: PETRONA KHAN Name: KARLI HART Address: [place] [address]
--- OUTSIDE RECORDS SUMMARY | 2023-12-24 14:23 | XMS_ITS | Continuity of Care Document ---
Author Organization [facility] SPEECH COMMUNICATION INSTRUCTOR Oncolog y Address [address] [place] [address]- Care Team Providers Care Gas Or Water Meter Installer Name Role Phone José Antonio AG, Charlene Guido Primary Care Physician Encounter [facility] Date(s): 12/24/22 - 01/23/23 [facility] SPEECH COMMUNICATION INSTRUCTOR Oncology [address] [place], [place] [address] Allergies, Adverse Reactions, Alerts No Known Allergies [...] Team Personnel Name: Hamlet Barkley MD Position: [facility] PHARMACIST MD Member Role: Lifetime PHARMACIST Physician Address: Address: [address] [place], [place] [address] [place], [place] [address] Name: Charlene Chou NP Position: Reference Physician Member Role: PCP Address: Address: [address] [place] [address] [place], [place] [address] Name: Yesenia Navarrete Position: [facility] Outreach Member Role: Lifetime Consulting Physician Name: Erica Chavez Position: [facility] [place] Member Role: Primary Care Nurse Care Team Related Persons Name: TITO KRUGER Address: [place] [address] Name: NAMITA MARSHALL Address: home [address] [place] [address] Name: PETRONA KHAN Name: KARLI HART Address: [place] [address]
--- OUTSIDE RECORDS SUMMARY | 2023-12-24 14:23 | XMS_ITS ---
Author Organization [facility] Address [address] [place] [address] Care Team Providers Care Outsole Molder Name Role Phone JANICE LIZARRAGA, JAKOB Primary Care Provider U LOY Resendiz Unavailable [phone] Medications Medication SIG (Take, Route, Frequency, Duration) Notes Start Date End Date Status diazePAM 10 MG 1 - 2 tablet as needed Orally 1 hour prior to the procedure for 2 days As needed M47.816 Lumbar spondylosis, the patient can request partial refill do not drive after taking this medicine, take after arriving to the pain clinic for the procedure 03/20/2023 Active Encounters Encounter Location Date Provider Diagnosis [facility] [address] [place] [address] 03/06/2023 LOY NIELSEN Plan Of Treatment Medication Medication Name Sig Start Date Stop Date Notes diazePAM 10 MG 1 - 2 tablet as need ed Orally 1 hour prior to the procedure for 2 days 03/20/2023 M47.816 Lumbar spondylosis, the patient can request partial refill do not drive after taking this medicine, take after arriving to the pain clinic for the procedure Progress Notes * MARSHALL, FREDDOB: 0 (33 yo F)Acc No.[id number]:03/06/2023 Patient:?FRED MARSHALL :1990???Age:32 Y???Sex:Female Address:[address] [place] [address], [address] * Refills? Start diazePAM Tablet, 10 MG, Orally, 2, 1 - 2 tablet as needed, 1 hour prior to the procedure, 2 days, Refills=0 * * Date:?
--- OUTSIDE RECORDS SUMMARY | 2023-12-24 14:24 | XMS_ITS | Patient Health Record ---
Author Organization [facility] Address [address] [place] [address] Care Team Providers Care Electric Mule Operator Name Role Phone JANICE LIZARRAGA, JAKOB Primary Care Provider U jude NIELSEN LOY Unavailable [phone] Allergies No Known Allergies Reason For Referral No Information Medications Medication SIG (Take, Route, Frequency, Duration) [...] (15 Fe) MG/ML as directed Orally Active Social History Tobacco Use: Social History Observation Description Date Details (start date - stop date) Never Smoker NA - NA Tobacco Use/Smoking Question Answer Notes Are you a nonsmoker Problems Problem Type SNOMED Code ICD Code Onset Dates Problem Status W/U Status Risk Notes Problem Lumbosacral spondylosis without myelopathy (16710868) Spondylosis without myelopathy or radiculopathy, lumbar region (M47.816) Active confirmed Vital Signs Heart Rate 76 /min 03/02/2023 Temperature 96.8 degrees Fahrenheit 03/02/2023 Oximetry 98 % 03/02/2023 Blood pressure diastolic 70 mm Hg 03/02/2023 Height 66 in 03/02/2023 Blood pressure systolic 98 mm Hg 03/02/2023 Weight 170 lbs 03/02/2023 BMI 27.44 kg/m2 03/02/2023 Encounters Encounter Location Date Provider Diagnosis [facility] [address] [place] [address] 01/07/2023 LOY FARID Spondylosis without myelopathy or radiculopathy, lumbar region M47.816 and Other dining services director (current) drug therapy Z79.899 [facility] [address] [place] [address] 03/02/2023 LOY FARID Spondylosis without myelopathy or radiculopathy, lumbar region M47.816 and Other senior living (current) drug therapy Z79.[address] [facility] [address] [place] [address] 03/06/2023 LOY DELVINID [facility] [address] [place] [address] 03/06/2023 LOY GIA Assessments Encounter Date Diagnosis (ICD Code) Assessment Notes Treatment Notes Treatment Clinical Notes 01/07/2023 Spondylosis without myelopathy or radiculopathy, lumbar region (ICD-10 - M47.816) regarding medication management, I reviewed the patient's prescription monitoring program and reviewed her medications the patient will continue current regimen at this point Regarding physical therapy, continue lumbar physical therapy exercises regarding radiological studies, I reviewed the patient's x-ray studies done on 12/19/22 that revealed degenerative changes and L5-S1 facet arthropathy Regarding interventional procedures, the patient is reporting that she has tried physical therapy, chiropractor, nonsteroidals, Tylenol for the last 3 months with no relief she has been doing lumbar core exercises, nonsteroidals, Tylenol for the last 3 months with no relief she has functional difficulty standing, walking, bending, sleeping, cooking, cleaning, driving due to the back pain shewas found to have positive bilateral lumbar facet loading test on exam negative straight leg raising test pain score is more than VAS of 8 the patient had a successful diagnostic lumbar medial branch block on 01/07/23 the procedure offer the patient 90% reduction of pain improve mobility activity analgesia range of motion for one hour after the procedure during that period of time the pain score dropped from pain score of 8 to pain score of 1 she was able to bend, twist, rotate, hyperextend the lumbar spine without pain for one but the pain recurred after one hour relief and pain score prior to discharge was VAS of 6 based on this I'm requesting authorization for a second diagnostic bilateral lumbar L4/5, L5-S1 #2 facet joints diagnostic lumbar medial branch blocks [address]7824, [address] bilaterally if successful the patient might be eligible for radiofrequency ablation 01/07/2023 Other senior living (current) drug therapy (ICD-10 - Z79.899) 03/02/2023 Spondylosis without myelopathy or radiculopathy, lumbar region (ICD-10 - M47.816) regarding medication management, I reviewed the patient's prescription monitoring program and reviewed her medications the patient will continue current regimen at this point Regarding physical therapy, continue lumbar physical therapy exercises regarding radiological studies, I reviewed the patient's x-ray studies done on 12/19/22 that revealed degenerative changes and L5-S1 facet arthropathy Regarding interventional procedures, the patient is reporting that she has tried physical therapy, chiropractor, nonsteroidals, Tylenol for the last 3 months with no relief she has been doing lumbar core exercises, nonsteroidals, Tylenol for the last 3 months with no relief she has functional difficulty standing, walking, bending, sleeping, cooking, cleaning, driving due to the back pain shewas found to have positive bilateral lumbar facet loading test on exam negative straight leg raising test pain score is more than VAS of 8 the patient had 2 successful diagnostic lumbar medial branch blocks on 01/07/23 and on 03/04/2023 the procedures offered the patient 90% reduction of pain improve mobility activity analgesia range of motion for 3 weeks after the first diagnostic block and for one hour after the Second diagnostic block during those periods of time the pain score dropped from pain score of 8 to pain score of 1 after each diagnostic block,she was able to bend, twist, rotate, hyperextend the lumbar spine without pain for 3 weeks after the first diagnostic block and for 1 hour after the second diagnostic block but the pain recurred after one hour relief and pain score prior to discharge was VAS of 6 based on this I'm requesting authorization for a bilateral lumbar L4/5, L5-S1 #2 facet joints diagnostic lumbar medial branchs radiofrequency ablation 96093, [address]60 bilateral 03/02/2023 Other senior living (current) drug therapy (ICD-10 - Z79.899) Plan Of Treatment No Information Insurance Providers Payer Name Payer Address Payer Phone Subscriber Number Group Number Insured Name Patient Relationship to Insured Coverage Start Date Coverage End Date [facility] [address] [address] [place] [address] [id number] FRED MARSHALL Self - patient is the insured Medical (General) History Medical History History ICD Code Carpal tunnel Cholecystectomy Calculus of gallbladder Lumbar spondylosis GERD Surgical History Surgery Date(Month/Year) Cholecystectomy 11/2020 Flexible Sigmoidoscopy 03/01/2020 Gastric Band 2012 Esophagogastroduodenscopy 12/07/2016 Gastric Sleeve 03/24/2019 Laparoscopic Appendectomy 2001 Ovarian Cystectomy 2010
[2023-12-24 14:31] VITALS: BP 90/60; BMI 27.6
--- NOTE | 2023-12-24 14:31 | MHC.OFFVIS ---
Vital Signs 12/24/23 14:31 Height 5 ft 6 in Weight 171 lb BMI 27.6 BP 90/60 Intake Visit Reasons: iud check Information Interpreted: clinical only Milking Machine Operator: Milking Machine Operator Present Allergies No Known Allergies [No Known Allergies*] Allergy (Verified 12/24/23 14:32) Medication List - Last Reconciled 12/24/23 by Marlene Pfeiffer CNM fluconazole 150 mg PO ONCE PRN 1 day levonorgestrel (Mirena) intrauterine omeprazole magnesium (Prilosec OTC) 20 mg PO DAILY Is last menstrual period known: No (IUD) HPI HPI iud check: Details: She can not feel her IUD strings and she wants to check to make sure okay. She has not had a period since the IUD was inserted it is a Mirena it has been in for 6 years she knows that it has been extended for how long it can be used for. She reminded this provider that I was present and helped her with her delivery in 2018. [facility] Medical History (Updated 12/24/23 @ 15:45 by Marlene Pfeiffer CNM) Dermoid cyst of left ovary IUD strings lost Cervicitis EVERTON I (cervical intraepithelial neoplasia I) Surgical History Hx of cholecystectomy H/O ovarian cystectomy LAP-BAND surgery status History of appendectomy Family History Mother High blood pressure Hyperlipemia Father High blood pressure Social History Alcohol intake: never Patient Tobacco Use Status: Never used Tobacco Substance Use Type: Marijuana Sexual orientation: Straight/Heterosexual Female Reproductive History Menstrual Age of Menarche: 10 control method: progestin IUCD Date of last pap smear: 08/30/23 (negative) Physical Exam Vital Signs: Last Vital Signs BP 90/60 12/24/23 14:31 BMI result Body Mass Index 27.6 Other: Multiparous cervix pink and smooth with clear scant discharge Mirena strings not initially visible in os Cytobrush twirled in cervical os repeatedly and tip of eyelash length of Mirena string eventually visible. Patient shown cervix with a mirror she also feels a little bump on her cervix cervix probed with Q-tip and nabothian cyst palpated where she feels the bump. External Female Exam: normal external appearance and normal appearance of the urethra Speculum Exam - Vagina: normal appearance of the vagina and normal vaginal discharge Speculum Exam - Cervix: normal appearance of the cervix and Cervical os closed Results Reviewed Results Reviewed: Name: Rajni Burch Age/Sex: 32/F Attending: Cesilia Nunes CNM : 1990 Submitted by: Cesilia Nunes CNM Copies to: MR #: [id number] Status: DEP REF Collected: 08/28/23 Location: [facility] Received: 08/30/23 Interpretation Satisfactory for evaluation. Negative for intraepithelial lesion or malignancy. Abundant inflammation. Fungal organisms consistent with Lexus species. HPV mRNA E6/E7: NOT DETECTED This assay detects E6/E7 viral messenger RNA (mRNA) from 14 high-risk HPV types (16, 18, 31, 33, 35, 39, 45, 51, 52, 56, 58, 59, 66, 68) HPV testing performed by [facility] [place], [place]. See reference laboratory portion of the EMR for entire report. Clinical Information LMP: Mirena Previous PAP test: 2022, Abnormal Other surgery:06/23 colpo EVERTON I Other history: 05/22 & 08/23 ASCUS HPV+ Material Received ThinPrep-Cervical Electronically Signed By: HERNAN Hyde (ASCP) 09/10/23 0904 The Pap Test is a screening procedure with the inherent possibility of both false negative and false positive results. Results should be interpreted in the context of historic and current clinical findings. Reliability of the Pap Test is enhanced by performing the test on a regular repetitive basis. Patient: Rajni Burch Age/Sex: 32/F MR#: [id number] Page 1 of 1 Assessment & Plan Assessment & Plan (1) IUD strings lost: Comment: Eyelash length of Mirena strings teased into visibility w Cytobrush 12/24/23. Code(s): T83.32XA - Displacement of intrauterine contraceptive device, initial encounter Category: Medical (2) EVERTON I (cervical intraepithelial neoplasia I): Comment: Pap 2019: ASCUS/HPV+. Colpo 06/2020: EVERTON I. PAp 2020: neg/neg. Repeat pap 2022: ASCUS/HPV+. per ASCCP: repeat in one yr. 2023... 08/30/2023 Pap is negative with negative HPV Code(s): N87.0 - Mild cervical dysplasia Category: Medical Plan Patient was reassured to see the tip of the edge of the string in the mirror. We discussed the current recommendations for how long the Mirena can used I also reminded her to be aware of any changes in her cycles indicating return of ovulation or menses as that would indicated dimunition in of effect of the Mirena and she should have it replaced then otherwise it can be in for 8 years. She had no need of any tests for any other infections we reviewed her Pap smear which was done in August of this year which was negative. She reviewed her delivery. Also discussed the challenges raising children to be fully bilingual. Coding Level of Care Code Est Pt Level 3 (90237) Diagnoses IUD strings lost T83.32XA EVERTON I (cervical intraepithelial neoplasia I) N87.0
== END 2023-12-25 09:52 | disposition home or self-care (01) ==
LOC: HO.HWSM 14:21
PROVIDERS: PCP Internal Medicine; Visit Provider Advanced Practice Midwife
DX: T83.32XA Displacement of intrauterine contraceptive device, initial encounter (principal); N87.0 Mild cervical dysplasia
CPT/HCPCS: 99213

== ENCOUNTER → 2023-12-24 14:21 | Outpatient (BNVA) | payer OTHER, SELFPAY | PROVIDERS: PCP Internal Medicine; Visit Provider Advanced Practice Midwife | DX: T83.32XA Displacement of intrauterine contraceptive device, initial encounter (principal); N87.0 Mild cervical dysplasia | CPT/HCPCS: 99212 ==

== ENCOUNTER 2024-09-01 09:46 | Outpatient (AMB) | payer OTHER, SELFPAY ==
--- NOTE | 2024-09-01 09:54 | MHC.OFFVIS ---
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 Doing well with adjuster and inspector concerns: Facial acne on only right side of face. Took someones control pills and noted improvement. Has a pelvic ultrasound September 14 for her follow up on her dermoid cyst and then a office visit at [facility] with her specialist for results. She experiences left breast pain on the outside quadrant around 02:00 position. She denies any injuries to the breast area. She reports she is being monitored yearly at this time. Uncertain if she wants a future is considering the idea. Currently is sexually active. She denies vaginal itching and irritation. STI screening offered; she accepts. She tries to eat healthy and stays active with exercise-has a computer trainer. Denies family history of ovarian or colon cancer. FH breast cancer- 2 cousins. Last pap smear 2023, negative. 2022-ascus positive HPV., history of EVERTON 1 in 2020. [facility] Medical History Dermoid cyst of left ovary IUD strings lost Cervicitis EVERTON I (cervical intraepithelial neoplasia I) Surgical History Hx of cholecystectomy H/O ovarian cystectomy LAP-BAND surgery status History of appendectomy Family History Mother High blood pressure Hyperlipemia Father High blood pressure Family/Other History of breast cancer Family/Other History of breast cancer Social History Alcohol intake: never Patient Tobacco Use Status: Never used Tobacco Substance Use Type: Marijuana Sexual orientation: Straight/Heterosexual Female Reproductive History Menstrual Age of Menarche: 10 control method: progestin IUCD (Mirena 03/19/2018) Total pregnancies: 1 Full term: 1 Number of Living Children: 1 Date of last pap smear: 08/28/23 (neg pap and hpv) History of abnormal pap smear: Yes (05/22 ascus +hpv 06/23 colpo cin1 07/24 colpo 08/23 ascus +hpv) Review of Systems Const All systems reviewed & are unremarkable except as noted in HPI and below Reports as per HPI Eyes Reports no additional complaints ENT Reports no additional complaints Card Reports no additional complaints Resp Reports no additional complaints GI Reports as per HPI and Reports no additional complaints Reports as per HPI Musc Reports no additional complaints Skin/Breast Reports as per HPI Neuro Reports no additional complaints Psych Reports no additional complaints Endo Reports no additional complaints Javier/Lymph Reports no additional complaints Aller/Immun Reports no additional complaints Physical Exam Vital Signs: Last Vital Signs BP 100/64 09/01/24 09:56 BMI result Body Mass Index 30.2 Const General: cooperative, healthy appearing, no acute distress, well developed and alert Orientation/consciousness: patient oriented x3 HEENT Head: Yes normal to inspection Eyes General: appearance normal, both eyes and all related structures Neck Neck: Yes normal visual inspection Thyroid: Thyroid normal Chest Other: Patient reports to the 2 o'clock position of the left breast where the past pain is noted, currently no pain today. Chest palpation & inspection: normal inspection of the chest and other (no puckering, dimpling, peau de orange, retraction, discharge, masses) Breast/axilla inspection: normal inspection of the breasts Breast/axilla palpation: normal palpation of the breasts Resp Effort & Inspection: normal respiratory effort GI Inspection: Yes normal to inspection Palpation (GI): Soft to palpation Rectal Exam - Female: deferred General: Yes bladder normal to palpation External Female Exam: normal external appearance and normal appearance of the urethra Speculum Exam - Vagina: normal appearance of the vagina, normal palpation and normal vaginal discharge Speculum Exam - Cervix: normal appearance of the cervix, normal palpation and Other cervical findings present (IUD strings not noted, known to have short strings) Bimanual exam- vagina & uterus: normal bimanual exam, normal palpation, uterine size normal, bladder normal to palpation, normal palpation and non-tender Bimanual Exam- Adnexa, other: no masses Skin General skin exam: no rashes or lesions noted Rashes: no rashes Neuro General: patient oriented x3 Cognition (Neuro): normal cognition Extrem General: Yes normal to inspection Psych Attitude: cooperative Thought process: Normal thought process present Assessment & Plan Assessment & Plan (1) Encounter for well woman exam with routine gynecological exam: Code(s): Z01.419 - Encounter for gynecological examination (general) (routine) without abnormal findings Category: Medical (2) Breast pain, left: Code(s): N64.4 - Mastodynia Category: Medical Plan: Left breast limited ultrasound, follow up pending results. Total time I personally spent on visit and management today: ?10 minutes. Time spent included review of pertinent office notes in the electronic health record; review of laboratory and imaging results; review of personal family medical history; performing physical exam; discussing diagnosis and plan of care with the patient; documenting the encounter in the EMR. Plan Discussed: Current recommendations for pap smears per ASCCP guidelines. Breast awareness and periodic breast exams. Maintain a healthy lifestyle including a well balanced diet and routine exercise. Use condoms for STI and prevention. Strongly advised not to take any once control as there are risk to high levels the hormones contributing to complications such as deep vein thrombosis and pulmonary embolus. Check policy and who is covered for Dermatology in notify the office who she would like to see if so a referral can be sent. Talk with partner whether she wants to plan a future in involve her adjuster and inspector specialist at [facility] regarding her concerns. Release records for consult from Dr. Kraus regarding ongoing surveillance of dermoid cyst. Starting vitamins a month or 2 before her on IUD is removed if she desires future . Has scheduled ultrasound in 2 week, make sure text check position of IUD at services date. Patient verbalizes understanding and agrees to the plan of care. She was given opportunity to ask questions and all questions were answered to the best of my ability. RTO in one year for annual adjuster and inspector examination. This note is constructed using voice recognition software. While every effort has been made to ensure accuracy, skidder loader errors may have been included. Orders: Orders Hepatitis C Antibody Reflex Today Z20.2 - Contact with and (suspected) exposure to infections with a predominantly sexual mode of transmission Hepatitis B Surface Antigen Today Z20.2 - Contact with and (suspected) exposure to infections with a predominantly sexual mode of transmission CT NG by PCR Today Z20.2 - Contact with and (suspected) exposure to infections with a predominantly sexual mode of transmission HPV High risk Today Z01.419 - Encounter for gynecological examination (general) (routine) without abnormal findings HIV Ab/Ag Today Z20.2 - Contact with and (suspected) exposure to infections with a predominantly sexual mode of transmission Syphilis Screen Today Z20.2 - Contact with and (suspected) exposure to infections with a predominantly sexual mode of transmission Bacterial Vaginosis Panel Today Z20.2 - Contact with and (suspected) exposure to infections with a predominantly sexual mode of transmission Pap Smear Today Z01.419 - Encounter for gynecological examination (general) (routine) without abnormal findings US breast LT limited Today N64.4 - Mastodynia Coding Level of Care Code Est Pt Level 2 (89825) Est Pt Prev Care 18-39y(71842) Diagnoses Encounter for well woman exam with routine gynecological exam Z01.419 Breast pain, left N64.4
[2024-09-01 09:56] VITALS: BP 100/64; BMI 30.2
--- OUTSIDE RECORDS SUMMARY | 2024-09-01 11:21 | XMS_ITS | Encounter Summary ---
Author Organization [facility] Address [address] [place] [address] Care Team Providers Care Crook Operator Name Role Phone Jaime Bach MD Primary Care Pr ovider Encounter Details Date Type Department Care Team ([facility] st Contact Info) Description 07/29/2024 Telephone Bariatric Surgery - [place] 175 [facility] [address] [place] [address] Stephanie Sauceda PA 175 [facility] [address] [place] [address] Social History Tobacco Use Types Packs/Day Years Used Date Smoking Tobacco: Never Smokeless Tobacco: Never Alcohol Use Standard Drinks/Week Comments Not Currently 0 (1 standard drink = 0.6 oz pur e alcohol) Housing Instability Answer Date Recorde d Are you worried that in the next 2 months you may not have stable housing? No 08/10/2024 Food Access & Nutrition Answer Date Rec orded Do you have access to a vari ety of food including fruits and vegetables? Yes 08/10/2024 Access to Healthcare Answer Date Record ed Within the last 3 months, ho w many times did you visit the emergency department for your medical care? 1 08/10/2024 Health Literacy Answer Date Recorded How often do you need to hav e someone help you when you read instructions, pamphlets, or other written material from your doctor or pharmacy? Never 08/10/2024 Caregiver: How often do you need to have someone help you when you read instructions, pamphlets, or other written material from your doctor or pharmacy? Not on file 08/10/2024 Financial Risk Answer Date Recorded How hard is it for you to pa y for the very basics like food, housing, medical care, and air conditioning / heating? Not very hard 08/10/2024 Transportation Answer Date Recorded Has the lack of transportati on kept you from meetings, work, or from getting things needed for daily living? No Has the lack of transportati on kept you from medical appointments or from getting medications? No 08/10/2024 Social Isolation Answer Date Recorded How often do you feel lonely or isolated from th ose around you? Never 08/10/2024 Food Risk Answer Date Recorded Within the past 12 months we worried whether our food would run out before we got money to buy more. Never true 08/10/2024 Within the past 12 months th e food we bought just didn't last and we didn't have money to get more. Never true 08/10/2024 Dependent Care Answer Date Recorded Do you need help finding or paying for care for your loved ones. For example, child custody evaluator or elderly care for an older adult? No 08/10/2024 Education Answer Date Recorded Do you think completing more education or training, like finishing a GED, going to college, or learning a trade, would be helpful for you? N/A 08/10/2024 Employment and Income Answer Date Recor ded During the last four weeks, have you been actively looking for work? No 08/10/2024 Living Situation Answer Date Recorded What is your living situation? 0 08/10/2024 Comments No Sex and Gender Information Value Date Recorded Sex Assigned at Not on file Legal Sex Female 3:51 AM EST Gender Identity Not on file Sexual Orientation Not on file documented as of this encounter Progress Notes * Malcom Erwin MA - 07/29/2024 10:01 AM EST Patient was denied due to having to try oral medication first I dont see in chart anything that is preventing them from trying the oral medication before injectors. If appropriate please send a scrip for phentermine and maybe reach out to pt to see if this is something they would like to do documented in this encounter Plan of Treatment Upcoming Encounters Date Type Department Care Team (Late st Contact Info) Description 09/22/2024 1:00 PM EDT Office Visit Orthopedics [address] [phone] Mazin Sabillon PA [address] [place], [place] 09/23/2024 9:15 AM EDT Office Visit Bariatric Surgery - [place] [address] [phone] Stephanie Sauceda PA [address] [address] 02/08/2025 9:45 AM EDT Office Visit Adult Medicine [address] [phone] Jaime Bach MD [address] [place] [address] documented as of this encounter Visit Diagnoses Not on filedocumented in this encounter Care Teams Crook Operator Relationship Specialty Start Date End Date Jaime Bach MD [address] [place] [address] PCP - General Internal Medicine 06/04/24 documented as of this encounter
--- OUTSIDE RECORDS SUMMARY | 2024-09-01 11:21 | XMS_ITS ---
Author Organization [facility] Address [address] [place] [phone] Care Team Providers Care Mechanic General Operational Test Name Role Phone JANICE LIZARRAGA, JAKOB Primary Care Provider U LOY Resendiz Unavailable [phone] Encounters Encounter Location Date Provider Diagnosis [facility] [address] [place] [address] 03/06/2023 LOY NIELSEN Plan Of Treatment No Information Progress Notes * FRED MARSHALLDOB: 0 (33 yo F)Acc No.[id number]:03/06/2023 Patient:?FRED MARSHALL :1990???Age:32 Y???Sex:Female Address:[address] [place] [address], [address] * * Date:?
--- OUTSIDE RECORDS SUMMARY | 2024-09-01 11:21 | XMS_ITS ---
Author Organization [facility] Address [address] [place] [phone] Care Team Providers Care Grocery Worker Name Role Phone JANICE LIZARRAGA, JAKOB Primary Care Provider U LOY Resendiz Unavailable [phone] Medications Medication SIG (Take, Route, Frequency, Duration) [...] Active Encounters Encounter Location Date Provider Diagnosis [facility] [address] [place] [address] 03/06/2023 LOY NIELSEN Plan Of Treatment Medication [...] clinic for the procedure Progress Notes * SANDEEP MARSHALLJULIÁNDOB: 0 (33 yo F)Acc No.[id number]:03/06/2023 Patient:?FRED MARSHALL :1990???Age:32 Y???Sex:Female Address:[address] [place] [address], [address] * Refills? Start diazePAM Tablet, 10 MG, Orally, 2, 1 - 2 tablet as needed, 1 hour prior to the procedure, 2 days, Refills=0 * * Date:?
--- OUTSIDE RECORDS SUMMARY | 2024-09-01 11:22 | XMS_ITS | Clinical Summary ---
Author Organization [address] [place] [address] [place] [id number] Phone Care Team Providers Care Delivery Driver/Supervisor Name Role Phone Jaime Bach MD Primary Care Pr ovider Allergies No known active allergies Medications ferrous sulfate 325 mg (65 mg iron) EC tablet Take 1 Tablet by mouth 2 times daily. 09/12/19 24 Active cyanocobalamin (VITAMIN B-12) 1,000 mcg tablet Take 1 Tablet by mouth every other day. 09/11/19 24 Active tretinoin (RETIN-A) 0.025 % cream APPLY PEA-SIZED AMOUNT TO FACE EVERY OTHER NIGHT AND INCREASE TOLERATED 09/02/19 24 Active cholecalcifero l (VITAMIN D-3) 50 mcg (2,000 unit) capsule Take 1 Capsule by mouth daily. 01/25/20 23 Active albuterol HFA (PROAIR HFA ; PROVENTIL HFA ; VENTOLIN HFA) 90 mcg/actuation inhaler Inhale 2 Puffs into the lungs 4 times daily as needed for Cough or Wheezing. 09/13/19 23 Active acetaminophen (TYLENOL 8 HOUR) 650 mg 8 hr tablet Take 1 Tablet by mouth every 8 hours as needed for Pain. 09/13/19 23 Active docusate sodium (COLACE) 100 mg capsule Take 1 Capsule by mouth 2 times daily. 09/13/19 23 Active levonorgestreL (MIRENA) 21 mcg/24hr (up to 8 yrs) 52 mg IUD 1 Each by Intrauterine route once. Active ergocalciferol (VITAMIN D-2) 1,250 mcg (50,000 unit) capsule Take 1 capsule (50,000 Units total) by mouth 1 (one) time per week. 4 each 11 07/16/19 25 2025 Active omeprazole (PriLOSEC) [address] capsuleIndicat ions:Gastroeso phageal reflux disease without esophagitis Take 1 capsule (20 mg total) by mouth 1 (one) time each day. 90 each 1 08/11/19 25 2024 Active tirzepatide, weight loss, (Zepbound) 2.5 mg/0.5 mL injection Inject 0.5 mL (2.5 mg total) under the skin every 7 (seven) days. 2 mL 08/27/19 25 2024 Active tirzepatide, weight loss, (Zepbound) 2.5 mg/0.5 mL solution Inject 2.5 mg under the skin every 7 (seven) days. 2 mL 07/16/19 25 2024 Discontinued phentermine 15 mg capsule Take 1 capsule (15 mg total) by mouth 1 (one) time each day before breakfast. Max Daily Amount: 15 mg 30 each 08/04/19 25 2024 Discontinued omeprazole (PriLOSEC) [address] capsule Take 1 capsule (20 mg total) by mouth 1 (one) time each day. 12/27/19 24 2024 Discontinued(R digna) Hospital, Clinic, or Other Facility Administered Medication Ordered Dose Route Frequency Start Date End Date Status lidocaine (XYLOCAINE) 1 % injection 4 mLIndications:Chroni c right hip pain 4 mL inj Once PRN Procedure 08/25/2024 08/25/2024 Ended methylPREDNISolone acetate (DEPO-Medrol) injection 80 mgIndications:Chroni c right hip pain 80 mg IAtc Once PRN Procedure 08/25/2024 08/25/2024 Ended Active Problems Problem Noted Date Diagnosed Date Class 1 obesity with body ma ss index (BMI) of 30.0 to 30.9 in adult 06/05/2024 Assessment & Plan (08/10/2024 12:39 PM EDT): Continue follow-up with weight management. It seems that the phentermine is causing side effects of anxiety/palpitations/tachycardia which are all possible with the medication. She will reach out to weight management for guidance and alternative medications. Vitamin B12 deficiency 01/24/2023 CTS (carpal tunnel syndrome) 03/14/2022 Overview (06/04/2024): Per patient Vitamin D deficiency 09/14/2020 Assessment & Plan (08/10/2024 12:39 PM EDT): Continue Drisdol weekly Iron deficiency anemia 09/14/2020 Assessment & Plan (08/10/2024 12:39 PM EDT): Continue OTC iron supplement. Will update labs Orders: CBC and differential; Future Ferritin; Future Iron and TIBC; Future Lumbar spondylolysis 02/03/2019 Overview (06/04/2024): XRay 01/2019- Mild at L4-5 and L5-S1 GERD (gastroesophageal reflux disease) 7 Overview (06/04/2024): With grade 2 reflux esophagitis Assessment & Plan (08/10/2024 12:39 PM EDT): Stable. Continue omeprazole Orders: omeprazole (PriLOSEC) [address] capsule; Take 1 capsule (20 mg total) by mouth 1 (one) time each day. Cyst of ovary 12/16/2015 Marijuana use, continuous 11/10/2014 Assessment & Plan (08/10/2024 12:39 PM EDT): She smokes marijuana every night. Cessation counseling provided Resolved Problems Problem Noted Date Diagnosed Date Resolved Date Calculus of gallbladder with out cholecystitis without obstruction 10/20/2020 08/10/2024 Overweight (BMI 25.0-29.9) 11/13/2018 0 08/10/2024 Overview (06/04/2024): s/p sleeve gastrectomy 2019 Encounters Date Type Department Care Team Description 08/25/2024 12:55 PM EDT - 08/25/2024 11:59 PM EDT Hospital Encounter XRAY - [address] [phone] Discharge Disposition: Home or Self Care 08/25/2024 12:30 PM EDT Consult Orthopedics - [address] [phone] Mazin Sabillon PA Chronic right hip pain (Primary Dx) 08/10/2024 12:34 PM EDT - 08/10/2024 11:59 PM EDT Hospital Encounter XRAY - [address] [phone] Chronic right hip pain Discharge Disposition: Home or Self Care 08/10/2024 12:00 PM EDT Office Visit Adult Medicine [address] [phone] Jaime Bach MD Annual physical exam (Primary Dx); Gastroesophageal reflux disease without esophagitis; Iron deficiency anemia, unspecified iron deficiency anemia type; Class 1 obesity due to excess calories without serious comorbidity with body mass index (BMI) of 30.0 to 30.9 in adult; Marijuana use, continuous; Vitamin D deficiency; Palpitations; Screening for metabolic disorder; Need for hepatitis C screening test; Mild depression; Chronic right hip pain 07/29/2024 Telephone Bariatric Surgery [address] [phone] Stephanie Sauceda PA 06/30/2024 1:15 PM EST Office Visit Bariatric Surgery [address] [phone] Stephanie Sauceda PA Class 1 obesity due to excess calories without serious comorbidity with body mass index (BMI) of 30.0 to 30.9 in adult (Primary Dx); Bariatric surgery status 06/08/2024 6:11 PM EST - 06/08/2024 11:[address] [facility] [address] [place] [phone] Discharge Disposition: Home or Self Care 06/05/2024 9:30 AM EST Nutrition Bariatric Surgery [address] [phone] Catherine Ruffin, UGO Class 1 obesity with body mass index (BMI) of 30.0 to 30.9 in adult, unspecified obesity type, unspecified whether serious comorbidity present (Primary Dx) from Last 3 Months Immunizations Name Administration Dates Next Due Tdap Tetanus diptheria acell ular pertussis (Boostrix; Adacel) 7yo and older 12/02/2017 Surgical History Surgery Date Site/Laterality Comments OTHER SURGICAL HISTORY 2000 PROCEDURE: AR LAPAROSCOPIC APPENDECTOMY OVARIAN CYST REMOVAL 2010 PROCEDURE: AR OVARIAN CYSTECTOMY UNI/BI LAPAROSCOPIC GASTRIC BANDING 2011 PROCEDURE: LAP ADJUSTABLE GASTRIC BAND; COMMENT: fialo ESOPHAGOGASTRODUODENOSCOPY 7 PROCEDURE: AR ESOPHAGOGASTRODUODENOSCOPY TRANSORAL DIAGNOSTIC; COMMENT: tiny erosions at GE junction; tight lap band GASTRIC BYPASS 9 PROCEDURE: AR GASTRIC RSTCV W/BYP W/SM INT RCNSTJ LIMIT ABSRPJ; COMMENT: sleeve FLEXIBLE SIGMOIDOSCOPY 0 PROCEDURE: HISTORICAL FLEXIBLE SIGMOIDOSCOPY; COMMENT: negative CHOLECYSTECTOMY 11/2020 PROCEDURE: HISTORICAL CHOLECYSTECTOMY Medical History Medical History Date Comments Ovarian cyst DX:Ovarian cyst GERD (gastroesophageal reflux disease) 12/05/2016 DX:GERD (gastroesophageal reflux disease) Helicobacter pylori gastriti s (chronic gastritis) 11/06/2013 DX:Helicobacter pylori gastr itis (chronic gastritis) Alcohol consumption binge drinking 11/10/2014 DX:Alcohol consumption binge drinking Calculus of gallbladder with out cholecystitis without obstruction 10/20/2020 Family History Medical History Relation Name Comments Lung cancer Aunt paternal non-smoker Breast cancer Cousin Hypertension Father Hypertension Maternal Grandmother HLD, ep ilepsy Hypertension Mother HLD Brain cancer Paternal Grandfather Hypertension Paternal Grandmother vision issues Colon cancer Neg Hx Relation Name Status Comments Aunt paternal Alive Brother x 3 Alive Cousin Alive Father Alive Maternal Grandfather Maternal Grandmother Alive Mother Alive Paternal Grandfather Paternal Grandmother Alive Sister x 2 Alive Social History Tobacco Use Types Packs/Day Years Used Date Smoking Tobacco: Never Smokeless Tobacco: Never Tobacco Cessation:Counseling Given: Not Answered Alcohol Use Standard Drinks/Week Comments Not Currently [...] for your loved ones. For example, child care coordinator or elderly care for an older adult? [...] on file Sexual Orientation Not on file Obstetrics History Last Filed Vital Signs Vital Sign Reading Time Taken Comments Blood Pressure 98/60 08/10/2024 11:52 AM EDT Pulse 90 08/10/2024 11:52 AM EDT Temperature 36.4 ??C (97.5 ??F) 08/10/2024 11:52 AM E DT Respiratory Rate 14 08/25/2024 12:27 PM EDT Oxygen Saturation 98% 06/08/2024 6:29 PM EST Inhaled Oxygen Concentration - - Weight 85.3 kg (188 lb) 08/25/2024 12:27 PM EDT Height 167.6 cm (5' 6 ) 08/25/2024 12:27 PM EDT Body Mass Index 30.34 08/25/2024 12:27 PM EDT Plan of Treatment Upcoming Encounters Date Type Department Care Team (Late st Contact Info) Description 09/22/2024 1:00 PM EDT Office Visit Orthopedics [address] [phone] Mazin Sabillon PA [address] [place] [address] 09/23/2024 9:15 AM EDT Office Visit Bariatric Surgery [address] [phone] Stephanie Sauceda PA [address] [phone] 02/08/2025 9:45 AM EDT Office Visit Adult Medicine South [address] [phone] Jaime Bach MD [address] [place] [address] Health Maintenance Due Date Last Done Comments Cervical Cancer Screening: Pap Smear 08/08/2025 08/08/2022 Depression Screening 08/10/2025 08/10/2024 Social Influencers of Health Screening 08/10/2025 08/10/2024 DTaP,Tdap,and Td Vaccines (6 - Td or Tdap) 12/03/2027 12/02/2017, 02/04/2004, 06/23/1990, Additional history exists Cholesterol Screening (Lipid Panel) 08/11/2029 08/11/2024, 06/27/2021 MMR Vaccines Completed 02/04/2004, 10/14/1992 IPV Vaccines Completed 06/29/2004, 06/04, 04/23/1990, Additional history exists Varicella Vaccines Completed 06/29/2004, 02/04/2004 Hepatitis B Vaccines Completed 08/31/2004, 06/29/2004, 02/04/2004 HPV Vaccines Completed 10/14/2007, 09/2006, 11/26/2006 Influenza Vaccine Discontinued 03/18/2008 HIV Screening Completed 03/30/2015 COVID-19 Vaccine Discontinued 01/09/2021, 12/12/2020 Hepatitis C Screening Completed 08/11/2024 HIB Vaccines Aged Out No longer eligi ble based on patient's age to complete this topic Hepatitis A Vaccines Aged Out No long er eligible based on patient's age to complete this topic Meningococcal ACWY Vaccine Aged Out N o longer eligible based on patient's age to complete this topic Meningococcal B Vacine Aged Out No lo nger eligible based on patient's age to complete this topic Pneumococcal Vaccine: Pediatrics (0 to 5 Years) and At-Risk Patients (6 to 64 Years) Aged Out No longer eligible based on patient's age to complete this topic RSV Immunization Patients Under 20 months Aged Out No longer eligible based on patient's age to complete this topic Procedures Procedure Name Priority Date/Time Associated Diagnosis Comments XR LUMBAR SPINE 4+ VIEWS Routine 08/25/2024 1:09 PM EDT Chronic right hip pain AR ARTHROCENTESIS/ASPIRA TION/INJECTION MAJOR JOINT/BURSA W/O U/S GUIDANCE Routine 08/25/2024 12:30 PM EDT Chronic right hip pain CBC WITH AUTO DIFFERENTIAL Routine 08/11/2024 8:02 AM EDT Iron deficiency anemia, unspecified iron deficiency anemia type Palpitations HEMOGLOBIN A1C Routine 08/11/2024 8:02 AM EDT Screening for metabolic disorder LIPID PANEL WITH REFLEX TO DIRECT LDL Routine 08/11/2024 8:02 AM EDT Screening for metabolic disorder IRON AND TIBC Routine 08/11/2024 8:02 AM EDT Iron deficiency anemia, unspecified iron deficiency anemia type Palpitations FERRITIN Routine 08/11/2024 8:02 AM EDT Iron deficiency anemia, unspecified iron deficiency anemia type Palpitations CBC AND DIFFERENTIAL Routine 08/11/2024 8:02 AM EDT Iron deficiency anemia, unspecified iron deficiency anemia type Palpitations HEPATITIS C ANTIBODY Routine 08/11/2024 8:02 AM EDT Need for hepatitis C screening test THYROID STIMULATING HORMONE WITH REFLEX TO FREE T4 AND FREE T3 Routine 08/11/2024 8:02 AM EDT Palpitations XR HIP 2-3 VIEWS RIGHT Routine 08/10/2024 12:42 PM EDT Chronic right hip pain ALBUMIN Routine 06/30/2024 1:30 PM EST Class 1 obesity due to excess calories without serious comorbidity with body mass index (BMI) of 30.0 to 30.9 in adult Bariatric surgery status VITAMIN B1 Routine 06/30/2024 1:30 PM EST Class 1 obesity due to excess calories without serious comorbidity with body mass index (BMI) of 30.0 to 30.9 in adult Bariatric surgery status VITAMIN B12 Routine 06/30/2024 1:30 PM EST Class 1 obesity due to excess calories without serious comorbidity with body mass index (BMI) of 30.0 to 30.9 in adult Bariatric surgery status VITAMIN B6 Routine 06/30/2024 1:30 PM EST Class 1 obesity due to excess calories without serious comorbidity with body mass index (BMI) of 30.0 to 30.9 in adult Bariatric surgery status VITAMIN D 25 HYDROXY Routine 06/30/2024 1:30 PM EST Class 1 obesity due to excess calories without serious comorbidity with body mass index (BMI) of 30.0 to 30.9 in adult Bariatric surgery status ZINC Routine 06/30/2024 1:30 PM EST Class 1 obesity due to excess calories without serious comorbidity with body mass index (BMI) of 30.0 to 30.9 in adult Bariatric surgery status SELENIUM SERUM Routine 06/30/2024 1:30 PM EST Class 1 obesity due to excess calories without serious comorbidity with body mass index (BMI) of 30.0 to 30.9 in adult Bariatric surgery status IRON AND TIBC Routine 06/30/2024 1:30 PM EST Class 1 obesity due to excess calories without serious comorbidity with body mass index (BMI) of 30.0 to 30.9 in adult Bariatric surgery status FOLATE Routine 06/30/2024 1:30 PM EST Class 1 obesity due to excess calories without serious comorbidity with body mass index (BMI) of 30.0 to 30.9 in adult Bariatric surgery status CBC WITH AUTO DIFFERENTIAL STAT 06/08/2024 7:15 PM EST MAGNESIUM STAT 06/08/2024 7:15 PM EST BASIC METABOLIC PANEL STAT 06/08/2024 7:15 PM EST CBC AND DIFFERENTIAL STAT 06/08/2024 7:15 PM EST HM PAP SMEAR Routine 08/08/2022 HM HIV SCREENING Routine 03/30/2015 from Last 3 Months or Most Recently Relevant to Health Maintenance Results * XR Lumbar Spine 4+ Views (08/25/2024 1:09 PM EDT) Anatomical Region Laterality Modality Spine, L-spine Radiographic Betty ging 08/25/2024 1:38 PM EDT Impressions 08/25/2024 1:41 PM EDT Mild discogenic degenerative change of the thoracic spine and lumbar spine. -------- FINAL REPORT -------- Dictated By: Deepika Valle Dictated Date: 08/25/2024 13:38 ET Assigned Physician: Deepika Valle Reviewed and Electronically Signed By: Deepika Valle Signed Date: 08/25/2024 13:41 ET Workstation ID: [id number] Transcribed By: Self Edit Transcribed Date: 08/25/2024 13:38 ET Narrative 08/25/2024 1:41 PM EDT LUMBOSACRAL SPINE, ??5 VIEWS INCLUDING OBLIQUES HISTORY: Right hip pain. Prior: Lumbar spine 12/19/2022. FINDINGS: There is normal alignment of the lumbosacral spine. ??No fractures are seen. There is minor endplate spurring of the visualized mid and lower thoracic spine. There is mild endplate spurring at L4-5 and L5-S1. Decreased disc height at L5- S1.. There are surgical clips in the vicinity of the GE junction. There are anastomotic sutures again noted at the left lung base. Procedure Note Deepika Valle MD - 08/25/2024 LUMBOSACRAL SPINE, 5 VIEWS INCLUDING OBLIQUES HISTORY: Right hip pain. Prior: Lumbar spine 12/19/2022. FINDINGS: There is normal alignment of the lumbosacral spine. No fractures areseen. There is minor endplate spurring of the visualized mid and lower thoracicspine. There is mild endplate spurring at L4-5 and L5-S1. Decreased discheight at L5-S1.. There are surgical clips in the vicinity of the GE junction. There areanastomotic sutures again noted at the left lung base. IMPRESSION: Mild discogenic degenerative change of the thoracic spine and lumbarspine. -------- FINAL REPORT -------- Dictated By: Deepika Valle Dictated Date: 08/25/2024 13:38 ET Assigned Physician: Deepika Valle Reviewed and Electronically Signed By: Deepika Valle Signed Date: 08/25/2024 13:41 ET Workstation ID: [id number] Transcribed By: Self Edit Transcribed Date: 08/25/2024 13:38 ET Mazin MAJOR IMG XR PROCEDURES Final Result * AR ARTHROCENTESIS/ASPIRATION/INJECTION MAJOR JOINT/BURSA W/O U/S GUIDANCE (08/25/2024 12:30 PM EDT) Narrative Rito Gonzalez MD - 08/25/2024 12:30 PM EDT PEDRITO Rangel ? 08/25/2024 ??1:02 PM L Inj/Asp: R greater trochanteric bursa Indications: pain Details: 22 G needle, lateral approach Medications: 4 mL lidocaine 1 %; 80 mg methylPREDNISolone acetate 80 mg/mL Outcome: tolerated well, no immediate complications Informed Consent: ??Site: ??Hip ??Laterality: ??Right ??Relevant images/test results available and reviewed: yes ?Health status cleared: ??Yes ??Procedure/treatment, purpose, treatment alternatives, risks/potential complications and benefits explained: yes ?Patient questions answered: yes ?Patient agrees, verbalizes understanding, and wants to proceed: yes ?Consent given by: ??Patient ??Informed consent discussion completed by Physician/JOSEPH with patient: ?? Verbal ??Pre-procedure timeout performed: yes ?? Result [facility] Mazin MAJOR IN CLINIC/BEDSIDE ORDERABLES Fin al Result * Hepatitis C antibody (08/11/2024 8:02 AM EDT) Hepatitis C Antibody Negative Negative LAB CHEMISTRY METHOD 08/11/2024 11:31 AM EDT [facility] Blood Venous blood specimen / Unknown Venipuncture / Unknown 08/11/2024 8:02 AM EDT 08/11/2024 8:02 AM EDT Jaime Bach MD LAB BLOOD ORDERA BLES Final Result Performing Organization Address City/[facility]/ZIP Co de Phone Number [facility] [address] [place] [address], [place] [phone] * Thyroid stimulating hormone with reflex to free t4 and free t3 (08/11/2024 8:02 AM EDT) [facility] TSH 1.63 0.40 - 4.00 mcIU/mL LAB CHEMISTRY METHOD 08/11/2024 10:52 AM EDT [facility] Blood Venous blood specimen / Unknown Venipuncture / Unknown 08/11/2024 8:02 AM EDT 08/11/2024 8:02 AM EDT Jaime Bach MD LAB BLOOD ORDERA BLES Final Result Performing Organization Address [facility]/ZIP Co de Phone Number [facility] [address] [place] [address], [place] [phone] * Lipid panel with reflex to direct LDL (08/11/2024 8:02 AM EDT) [facility] Cholesterol 148 0 - 200 mg/dL LAB CHEMISTRY METHOD 08/11/2024 10:45 AM EDT [facility] Triglycerides 73 0 - 150 mg/dL LAB CHEMISTRY METHOD 08/11/2024 10:45 AM EDT [facility] HDL 59 >=40 mg/dL LAB CHEMISTRY METHOD 08/11/2024 10:45 AM EDT [facility] LDL Calculated 74 0 - 100 mg/dL LAB CHEMISTRY METHOD 08/11/2024 10:45 AM EDT [facility] VLDL Cholesterol Sha 14.6 mg/dL LAB CHEMISTRY METHOD 08/11/2024 10:45 AM EDT [facility] Non HDL Chol. (LDL+VLDL) 89 <145 mg/dL LAB CHEMISTRY METHOD 08/11/2024 10:45 AM EDT [facility] Chol/HDL Ratio 2.5 0.0 - 4.4 LAB CHEMISTRY METHOD 08/11/2024 10:45 AM EDT [facility] Blood Venous blood specimen / Unknown Venipuncture / Unknown 08/11/2024 8:02 AM EDT 08/11/2024 8:02 AM EDT Jaime Bach MD LAB BLOOD ORDERA BLES Final Result [facility] [address] [place] [address], [place] [phone] * CBC auto differential (08/11/2024 8:02 AM EDT) Only the most recent of2 resultswithin the time period is included. WBC 6.9 4.8 - 10.8 K/mcL LAB HEMETOLOGY METHOD 08/11/2024 10:14 AM [facility] RBC 4.00 3.80 - 4.80 M/mcL LAB HEMETOLOGY METHOD [facility] Hemoglobin 11.6 11.5 - 16.0 g/dL LAB HEMETOLOGY METHOD 08/11/2024 10:14 AM [facility] Hematocrit 35.4 35.0 - 47.0 % LAB HEMETOLOGY METHOD 08/11/2024 10:14 AM EDT [facility] MCV 89.2 79.0 - 98.0 FL LAB HEMETOLOGY METHOD 08/11/2024 10:14 AM [facility] MCH 29.2 27.0 - 32.0 pcg LAB HEMETOLOGY METHOD 08/11/2024 10:14 AM [facility] MCHC 32.8 32.0 - 37.0 g/dL LAB HEMETOLOGY METHOD 08/11/2024 10:14 AM [facility] RDW 13.4 11.0 - 15.0 % LAB HEMETOLOGY METHOD 08/11/2024 10:14 AM [facility] Platelets 350 130 - 400 K/mcL LAB HEMETOLOGY METHOD 08/11/2024 10:14 AM [facility] MPV 9.9 7.0 - 11.0 FL LAB HEMETOLOGY METHOD 08/11/2024 10:14 AM [facility] NRBC 0.0 <1.0 % LAB HEMETOLOGY METHOD 08/11/2024 10:14 AM [facility] NRBC Absolute 0.00 <0.10 K/mcL LAB HEMETOLOGY METHOD 08/11/2024 10:14 AM [facility] Neutrophils Relative 57.7 % LAB HEMETOLOGY METHOD 08/11/2024 10:14 AM [facility] Lymphocytes Relative 31.2 % LAB HEMETOLOGY METHOD 08/11/2024 10:14 AM [facility] Monocytes Relative 9.7 % LAB HEMETOLOGY METHOD 08/11/2024 10:14 AM [facility] Eosinophils Relative 0.9 % LAB HEMETOLOGY METHOD 08/11/2024 10:14 AM [facility] Basophils Relative 0.4 % LAB HEMETOLOGY METHOD 08/11/2024 10:14 AM [facility] Immature Granulocytes Relative 0.1 % LAB HEMETOLOGY METHOD 08/11/2024 10:14 AM [facility] Neutrophils Absolute 3.99 1.50 - 7.00 K/mcL LAB HEMETOLOGY METHOD 08/11/2024 10:14 AM [facility] Lymphocytes Absolute 2.16 1.00 - 5.00 K/mcL LAB HEMETOLOGY METHOD 08/11/2024 10:14 AM EDT [facility] Monocytes Absolute 0.67 0.20 - 1.00 K/mcL LAB HEMETOLOGY METHOD 08/11/2024 10:14 AM EDT [facility] Eosinophils Absolute 0.06 0.00 - 0.50 K/mcL LAB HEMETOLOGY METHOD 08/11/2024 10:14 AM EDT [facility] Basophils Absolute 0.03 0.00 - 0.20 K/mcL LAB HEMETOLOGY METHOD 08/11/2024 10:14 AM EDT [facility] Immature Granulocytes Absolute 0.01 0.00 - 0.03 K/mcL LAB HEMETOLOGY METHOD 08/11/2024 10:14 AM EDT [facility] Blood Venous blood specimen / Unknown Venipuncture / Unknown 08/11/2024 8:02 AM EDT 08/11/2024 8:02 AM EDT Jaime Bach MD LAB BLOOD ORDERA BLES Final Result [facility] [address] [place] [address], * Iron and TIBC (08/11/2024 8:02 AM EDT) Only the most recent of2 resultswithin the time period is included. Iron 92 40 - 150 mcg/dL LAB CHEMISTRY METHOD 08/11/2024 10:45 AM EDT [facility] TIBC 432 250 - 450 mcg/dL LAB CHEMISTRY METHOD 08/11/2024 10:45 AM EDT [facility] Iron Saturation 21 15 - 50 % LAB CHEMISTRY METHOD 08/11/2024 10:45 AM EDT [facility] Blood Venous blood specimen / Unknown Venipuncture / Unknown 08/11/2024 8:02 AM EDT 08/11/2024 8:02 AM EDT Jaime Bach MD LAB BLOOD ORDERA BLES Final Result [facility] [address] [place] [address], [place] [phone] * Hemoglobin A1c (08/11/2024 8:02 AM EDT) Pathologist [facility] Hemoglobin A1C 5.4 <6.5 % LAB CHEMISTRY METHOD 08/11/2024 2:26 PM EDT [facility] Mean Bld Glu Estim. 108 mg/dL LAB CHEMISTRY METHOD 08/11/2024 2:26 PM EDT [facility] Blood Venous blood specimen / Unknown Venipuncture / Unknown 08/11/2024 8:02 AM EDT 08/11/2024 8:02 AM EDT Jaime Bach MD LAB BLOOD ORDERA BLES Final Result Performing Organization Address City/[facility]/ZIP Co de Phone Number [facility] [address] [place] [address], [place] [phone] * Ferritin (08/11/2024 8:02 AM EDT) [facility] Ferritin 15 8 - 252 ng/mL LAB CHEMISTRY METHOD 08/11/2024 10:45 AM EDT [facility] Blood Venous blood specimen / Unknown Venipuncture / Unknown 08/11/2024 8:02 AM EDT 08/11/2024 8:02 AM EDT Jaime Bach MD LAB BLOOD ORDERA BLES Final Result Performing Organization Address City/[facility]/ZIP Co de Phone Number [facility] [address] [place] [address], [place] [phone] * XR Hip 2-3 Views Right (08/10/2024 12:42 PM EDT) Anatomical Region Laterality Modality Lower Extremities, Hip Right Radiograp hic Imaging 08/10/2024 2:33 PM EDT Impressions 08/10/2024 2:33 PM EDT No acute fracture or dislocation of the right hip. -------- FINAL REPORT -------- Dictated By: Dontrell William Dictated Date: 08/10/2024 14:33 ET Assigned Physician: Dontrell William Reviewed and Electronically Signed By: Dontrell William Signed Date: 08/10/2024 14:33 ET Workstation ID: [id number] Transcribed By: Self Edit Transcribed Date: 08/10/2024 14:33 ET Narrative 08/10/2024 2:33 PM EDT HISTORY: right hip pain TECHNIQUE: Frontal and lateral radiographs of the right hip. COMPARISON: None FINDINGS: No fracture or dislocation is seen. The hip joint is well-maintained with normal alignment. The femoral head is well-seated within the acetabulum. ??IUD is present overlying the pelvis. Procedure Note Dontrell William MD - 08/10/2024 HISTORY: right hip pain TECHNIQUE: Frontal and lateral radiographs of the right hip. COMPARISON: None FINDINGS: No fracture or dislocation is seen. The hip joint is well-maintained withnormal alignment. The femoral head is well-seated within the acetabulum.IUD is present overlying the pelvis. IMPRESSION: No acute fracture or dislocation of the right hip. -------- FINAL REPORT -------- Dictated By: Dontrell William Dictated Date: 08/10/2024 14:33 ET Assigned Physician: Dontrell William Reviewed and Electronically Signed By: Dontrell William Signed Date: 08/10/2024 14:33 ET Workstation ID: [id number] Transcribed By: Self Edit Transcribed Date: 08/10/2024 14:33 ET Jaime Bach MD IMG XR PROCEDURE S Final Result * Zinc (06/30/2024 1:30 PM EST) Zinc 65 60 - 130 ug/dL 07/03/2024 12:15 PM EST [facility] Comment: Elevated results may be due to sample collected in a non-certified trace element-free tube. This test was developed and the performance characteristics determined by [facility]. It has not been cleared or approved by the FDA. The laboratory is regulated under CLIA as qualified to perform high-complexity testing. This test is used for patient testing purposes. It should not be regarded as investigational or for research. Test performed at [facility], [address] , [place], [place] ??[address] ? [phone] Usha Norton MD, PhD - Purchase Order Checker Blood Venous blood specimen / Unknown Venipuncture / Unknown 06/30/2024 1:30 PM EST 06/30/2024 1:30 PM EST Stephanie MAJOR LAB BLOOD ORDERABLES Final R esult [facility] [address] [place] [address] * Selenium serum (06/30/2024 1:30 PM EST) Selenium 100 63 - 160 mcg/L 07/10/2024 4:40 AM EST [facility] Comment: (Note) This test was developed and its analytical performance characteristics have been determined by [facility]. It has not been cleared or approved by the FDA. This assay has been validated pursuant to the CLIA regulations and is used for clinical purposes. [facility] [address] [address],[address] [facility] [address] Karly Lozano MD, PhD Test Performed at: [facility] [address] [address], [address] [place], [place] ??[phone] ? June Lozano MD, PhD Blood Venous blood specimen / Unknown Venipuncture / Unknown 06/30/2024 1:30 PM EST 06/30/2024 1:30 PM EST Stephanie MAJOR LAB BLOOD ORDERABLES Final R esult [facility] [address] [place] [address] * (ABNORMAL) Vitamin D 25 hydroxy (06/30/2024 1:30 PM EST) [facility] Vit D, 25-Hydroxy 15.1(L) 30.0 - 80.0 ng/mL LAB CHEMISTRY METHOD 06/30/2024 7:02 PM EST [facility] Blood Venous blood specimen / Unknown Venipuncture / Unknown 06/30/2024 1:30 PM EST 06/30/2024 1:30 PM EST Stephanie MAJOR LAB BLOOD ORDERABLES Final R [facility] [address] [place] [address], [place] [phone] * Vitamin B1 (06/30/2024 1:30 PM EST) [facility] Vitamin B1 Whole Blood 68 38 - 122 ug/L 07/06/2024 12:22 PM EST [facility] Comment: This test was developed and the performance characteristics determined by [facility]. It has not been cleared or approved by the FDA. The laboratory is regulated under CLIA as qualified to perform high-complexity testing. This test is used for patient testing purposes. It should not be regarded as investigational or for research. Test performed at [facility], [address] , [place], [place] ??[address] ? [phone] Usha Norton MD, PhD - Purchase Order Checker Blood Venous blood specimen / Unknown Venipuncture / Unknown 06/30/2024 1:30 PM EST 06/30/2024 1:30 PM EST Stephanie MAJOR LAB BLOOD ORDERABLES Final R esult [facility] [address] [place] [address] * (ABNORMAL) Vitamin B6 (06/30/2024 1:30 PM EST) Pathologist [facility] Vitamin B6 (Pyridoxine) Level 103(H) 5 - 50 ug/L 07/06/2024 1:02 PM EST [facility] Comment: This test was developed and the performance characteristics determined by [facility]. It has not been cleared or approved by the FDA. The laboratory is regulated under CLIA as qualified to perform high-complexity testing. This test is used for patient testing purposes. It should not be regarded as investigational or for research. Test performed at [facility], [address] [place], [place] ??[address] ? [phone] Usha Norton MD, PhD - Purchase Order Checker Blood Venous blood specimen / Unknown Venipuncture / Unknown 06/30/2024 1:30 PM EST 06/30/2024 1:30 PM EST Stephanie MAJOR LAB BLOOD ORDERABLES Final R esult Performing Organization Address [facility] Co de Phone Number [facility] [address] [place] [address] * Folate (06/30/2024 1:30 PM EST) [facility] Folate 3.6 2.8 - 17.0 ng/ml LAB CHEMISTRY METHOD 06/30/2024 7:17 PM EST [facility] Blood Venous blood specimen / Unknown Venipuncture / Unknown 06/30/2024 1:30 PM EST 06/30/2024 1:30 PM EST Stephanie MAJOR LAB BLOOD ORDERABLES Final R esult Performing Organization Address City/[facility]/ZIP Co de Phone Number [facility] [address] [place] [address], [place] [phone] * Vitamin B12 (06/30/2024 1:30 PM EST) Vitamin B-12 421 250 - 900 pcg/mL LAB CHEMISTRY METHOD 06/30/2024 7:17 PM EST [facility] Blood Venous blood specimen / Unknown Venipuncture / Unknown 06/30/2024 1:30 PM EST 06/30/2024 1:30 PM EST Stephanie MAJOR LAB BLOOD ORDERABLES Final R esult [facility] [address] [place] [address], * Albumin (06/30/2024 1:30 PM EST) Pathologist [facility] Albumin 3.9 3.2 - 5.0 g/dL LAB CHEMISTRY METHOD 06/30/2024 6:50 PM EST [facility] Blood Venous blood specimen / Unknown Venipuncture / Unknown 06/30/2024 1:30 PM EST 06/30/2024 1:30 PM EST Stephanie MAJOR LAB BLOOD ORDERABLES Final R esult [facility] [address] [place] [address], [place] [phone] * Magnesium (06/08/2024 7:15 PM EST) Magnesium 2.1 1.9 - 2.6 mg/dL LAB CHEMISTRY METHOD 06/08/2024 8:03 PM EST [facility] Blood Venous blood specimen / Unknown Venipuncture / Unknown 06/08/2024 7:15 PM EST 06/08/2024 7:31 PM EST Jameel MAJOR LAB BLOOD ORDERABLES Final R esult [facility] [address] [place] [address], [place] [phone] * (ABNORMAL) Basic metabolic panel (06/08/2024 7:15 PM EST) Sodium 137 133 - 145 mmol/L LAB CHEMISTRY METHOD 06/08/2024 8:[address] [facility] Potassium 5.3 3.5 - 5.5 mmol/L LAB CHEMISTRY METHOD 06/08/2024 8:[address] [facility] Chloride 110 96 - 110 mmol/L LAB CHEMISTRY METHOD 06/08/2024 8:[address] [facility] CO2 25 21 - 32 mmol/L LAB CHEMISTRY METHOD 06/08/2024 8:[address] [facility] Anion Gap 2(L) 3 - 11 LAB CHEMISTRY METHOD 06/08/2024 8:[address] [facility] Glucose 100 70 - 100 mg/dL LAB CHEMISTRY METHOD 06/08/2024 8:[address] [facility] BUN 14 5 - 25 mg/dL LAB CHEMISTRY METHOD 06/08/2024 8:[address] [facility] Creatinine 0.69 0.50 - 1.10 mg/dL LAB CHEMISTRY METHOD 06/08/2024 8:[address] [facility] eGFR 117 >=60 mL/min/1. 73m2 LAB CHEMISTRY METHOD 06/08/2024 8:[address] [facility] Comment:Calculation based on the??Chronic Kidney Disease Epidemiology Collaboration (CKD-EPI) equation refit??without adjustment for race. BUN/Creatinine Ratio 20.3 LAB CHEMISTRY METHOD 06/08/2024 8:[address] [facility] Calcium 8.6 8.5 - 10.5 mg/dL LAB CHEMISTRY METHOD 06/08/2024 8:[address] [facility] Blood Venous blood specimen / Unknown Venipuncture / Unknown 06/08/2024 7:15 PM EST 06/08/2024 7:31 PM EST us Jameel MAJOR LAB BLOOD ORDERABLES Final R esult [facility] ([facility] [address] [place] [address], * Pap Smear (08/08/2022) Pap smear no interpretation , abstracted Historical Provider HEALTH MAINTENANCE Final Result * HIV Screening (03/30/2015) HIV Screening abstracted Historical Provider HEALTH MAINTENANCE Final Result from Last 3 Months or Most Recently Relevant to Health Maintenance Insurance [facility] Care Teams Delivery Driver/Supervisor Relationship Specialty Start Date End Date Jamie Bach MD [address] [place] [address] PCP - General Internal Medicine 06/04/24
--- OUTSIDE RECORDS SUMMARY | 2024-09-01 11:22 | XMS_ITS | Patient Health Record ---
Author Organization [facility] Address [address] [place] [phone] Care Team Providers Care Line Maintenance Supervisor Name Role Phone JANICE LIZARRAGA, JAKOB Primary Care Provider U navailable Allergies No Known Allergies Reason For Referral [...] Risk Notes Problem Lumbosacral spondylosis without myelopathy (39863955) Spondylosis without myelopathy or radiculopathy, lumbar region (M47.816) Active confirmed Plan Of Treatment No Information Insurance Providers Payer Name Payer Address Payer Phone Subscriber Number Group Number Insured Name Patient Relationship to Insured Coverage Start Date [facility]age End Date [facility] [address] [address] [place] [phone] [id number] FRED MARSHALL Self - patient is the insured Medical (General) History Medical History History ICD Code Carpal tunnel Cholecystectomy Calculus of gallbladder Lumbar spondylosis GERD Surgical History Surgery Date(Month/Year) Cholecystectomy 11/2020 Flexible Sigmoidoscopy 03/01/2020 Gastric Band 2012 Esophagogastroduodenscopy 12/07/2016 Gastric Sleeve 03/24/2019 Laparoscopic Appendectomy 2001 Ovarian Cystectomy 2010
--- OUTSIDE RECORDS SUMMARY | 2024-09-01 11:22 | XMS_ITS ---
Author Organization [facility] Address [address] [place] [phone] Care Team Providers Care Rotary Driller Name Role Phone JANICE LIZARRAGA, JAKOB Primary Care Provider U RASHMI Resendiz Unavailable [phone] REASON FOR VISIT rfa Medications Medication SIG [...] Active Encounters Encounter Location Date Provider Diagnosis [facility] [address] [place] [phone] 04/06/2023 RASHMI NIELSEN Plan Of Treatment No Information Progress Notes * FRED MARSHALLDOB: 0 (33 yo F)Acc No.[id number]:04/06/2023 Progress Notes Patient:?FRED MARSHALL Provider:?Rashmi Nielsen MD :1990???Age:32 Y???Sex:Female D ate:04/06/2023 Address:[address] [place], [place] [id number] Pcp:JAKOB CAMACHO MD Subjective: * Chief Complaints: [...] * Vitals:? Assessment: Plan: * Treatment: * * Electronic signature of REZA MARVIN MD on 09/01/2024 at 11:21 AM EDT Sign off status: Pending * Provider:?Rashmi Nielsen MD Date:? 023 Generated for Beti simmons/Karen/Carmen on:?09/01/2024 11:21 AM EDT
== END 2024-09-01 12:53 | disposition home or self-care (01) ==
LOC: HO.HWS 09:46
PROVIDERS: PCP Internal Medicine; Visit Provider Advanced Practice Midwife
DX: Z01.419 Encounter for gynecological examination (general) (routine) without abnormal findings (principal); N64.4 Mastodynia
CPT/HCPCS: 99212; 99395; 99459

== ENCOUNTER 2024-09-01 09:46 | Outpatient (REF) | payer OTHER, SELFPAY ==
[2024-09-01 12:02] LABS: Syphilis Screen Nonreactive (Nonreactive)
[2024-09-01 12:03] LABS: HBsAGNum1 0.26 S/CO (0.00-0.99); HIV AB/AG Nonreactive (Nonreactive); HIV Num 1 0.09 S/CO (0.00-0.99); Hepatitis B Surface Antigen Negative (Negative); ~Hepatitis C Antibody Nonreactive (Nonreactive)
--- OUTSIDE RECORDS SUMMARY | 2024-09-01 12:35 | XMS_ITS | Clinical Summary ---
Author Organization [address] [place] [address] [place] [phone] Phone Care Team Providers Care Conservation Science Officer Name Role Phone Jaime Bach MD Primary [...] 11:59 PM EDT Hospital Encounter XRAY - [address] [phone] Discharge Disposition: Home or Self Care 08/25/2024 12:30 PM EDT Consult Orthopedics - [address] [phone] Mazin Sabillon PA Chronic right hip pain (Primary Dx) 08/10/2024 12:34 PM EDT - 08/10/2024 11:59 PM EDT Hospital Encounter XRAY - [address] [phone] Chronic right hip pain Discharge Disposition: Home or Self Care 08/10/2024 12:00 PM EDT Office Visit Adult Medicine [address] [phone] Jaime Bach MD Annual physical exam (Primary [...] right hip pain 07/29/2024 Telephone Bariatric Surgery [address] [phone] Stephanie Sauceda PA 06/30/2024 1:15 PM EST Office Visit Bariatric Surgery [address] [phone] Stephanie Sauceda PA Class 1 obesity due to excess calories without serious comorbidity with body mass index (BMI) of 30.0 to 30.9 in adult (Primary Dx); Bariatric surgery status 06/08/2024 6:11 PM EST - 06/08/2024 11:31 PM EST Emergency [facility] Emergency [address] [place] [phone] Discharge Disposition: Home or Self Care 06/05/2024 9:30 AM EST Nutrition Bariatric Surgery [address] [phone] Catherine Ruffin, UGO Class 1 obesity with body mass index (BMI) of 30.0 to 30.9 in adult, unspecified obesity type, unspecified whether serious comorbidity present (Primary Dx) from Last 3 Months Immunizations Name Administration Dates Next Due Tdap Tetanus diptheria acell ular pertussis (Boostrix; Adacel) 7yo and older 12/02/2017 Surgical History Surgery Date Site/Laterality Comments OTHER SURGICAL HISTORY 2000 PROCEDURE: [place] LAPAROSCOPIC APPENDECTOMY OVARIAN CYST REMOVAL 2010 PROCEDURE: [place] OVARIAN CYSTECTOMY UNI/BI LAPAROSCOPIC GASTRIC BANDING 2011 PROCEDURE: LAP ADJUSTABLE GASTRIC BAND; COMMENT: fialo ESOPHAGOGASTRODUODENOSCOPY 7 PROCEDURE: FL ESOPHAGOGASTRODUODENOSCOPY TRANSORAL DIAGNOSTIC; COMMENT: tiny erosions at GE junction; tight lap band GASTRIC BYPASS 9 PROCEDURE: FL GASTRIC RSTCV W/BYP W/SM INT RCNSTJ LIMIT [...] care for your loved ones. For example, early childhood assistant or elderly care for an older adult? [...] 09/22/2024 1:00 PM EDT Office Visit Orthopedics [address] [phone] Mazin Sabillon PA [address] [place] [address] 09/23/2024 9:15 AM EDT Office Visit Bariatric Surgery [address] [phone] Stephanie Sauceda PA [address] [address] 02/08/2025 9:45 AM EDT Office Visit Adult Medicine [place] [address] [phone] Jaime Bach MD [address] [place] [address] Health Maintenance Due Date Last Done Comments [...] 1:09 PM EDT Chronic right hip pain FL ARTHROCENTESIS/ASPIRA TION/INJECTION MAJOR JOINT/BURSA W/O U/S GUIDANCE [...] Signed Date: 08/25/2024 13:41 ET Workstation ID: [id number] Transcribed By: Self Edit Transcribed Date: 08/25/2024 [...] Signed Date: 08/25/2024 13:41 ET Workstation ID: [id number] Transcribed By: Self Edit Transcribed Date: 08/25/2024 13:38 ET Mazin MAJOR IMG XR PROCEDURES Final Result * FL ARTHROCENTESIS/ASPIRATION/INJECTION MAJOR JOINT/BURSA W/O U/S GUIDANCE (08/25/2024 [...] Verbal ??Pre-procedure timeout performed: yes ?? Result [facility] Mazin MAJOR IN CLINIC/BEDSIDE ORDERABLES Fin al Result * Hepatitis C antibody (08/11/2024 8:02 AM EDT) Hepatitis C Antibody Negative Negative LAB CHEMISTRY METHOD 08/11/2024 11:31 AM EDT [facility] Blood Venous blood specimen / Unknown Venipuncture / Unknown 08/11/2024 8:02 AM EDT 08/11/2024 8:02 AM EDT Jaime Bach MD LAB BLOOD ORDERA BLES Final Result Performing Organization Address City/[facility]/ZIP Co de Phone Number [facility] [address] [place] [address], [place] [phone] * Thyroid stimulating hormone with reflex to free t4 and free t3 (08/11/2024 8:02 AM EDT) [facility] TSH 1.63 0.40 - 4.00 mcIU/mL LAB CHEMISTRY METHOD 08/11/2024 10:52 AM EDT [facility] Blood Venous blood specimen / Unknown Venipuncture / Unknown 08/11/2024 8:02 AM EDT 08/11/2024 8:02 AM EDT Jaime Bach MD LAB BLOOD ORDERA BLES Final Result Performing Organization Address [facility]/ZIP Co de Phone Number [facility] [address] [place] [address], [place] [phone] * Lipid panel with reflex to direct LDL (08/11/2024 8:02 AM EDT) [facility] Cholesterol 148 0 - 200 mg/dL LAB CHEMISTRY METHOD 08/11/2024 10:45 AM EDT [facility] Triglycerides 73 0 - 150 mg/dL LAB CHEMISTRY METHOD 08/11/2024 10:45 AM EDT [facility] HDL 59 >=40 mg/dL LAB CHEMISTRY METHOD 08/11/2024 10:45 AM EDT [facility] LDL Calculated 74 0 - 100 mg/dL LAB CHEMISTRY METHOD 08/11/2024 10:45 AM EDT [facility] VLDL Cholesterol Sha 14.6 mg/dL LAB CHEMISTRY METHOD 08/11/2024 10:45 AM EDT [facility] Non HDL Chol. (LDL+VLDL) 89 <145 mg/dL LAB CHEMISTRY METHOD 08/11/2024 10:45 AM EDT [facility] Chol/HDL Ratio 2.5 0.0 - 4.4 LAB CHEMISTRY METHOD 08/11/2024 10:45 AM EDT [facility] Blood Venous blood specimen / Unknown Venipuncture / Unknown 08/11/2024 8:02 AM EDT 08/11/2024 8:02 AM EDT Jaime Bach MD LAB BLOOD ORDERA BLES Final Result [facility] [address] [place] [address], [place] [phone] * CBC auto differential (08/11/2024 8:02 AM EDT) Only the most recent of2 resultswithin the time period is included. WBC 6.9 4.8 - 10.8 K/mcL LAB HEMETOLOGY METHOD 08/11/2024 10:14 AM [facility] RBC 4.00 3.80 - 4.80 M/mcL LAB HEMETOLOGY METHOD [facility] Hemoglobin 11.6 11.5 - 16.0 g/dL LAB HEMETOLOGY METHOD 08/11/2024 10:14 AM [facility] Hematocrit 35.4 35.0 - 47.0 % LAB HEMETOLOGY METHOD 08/11/2024 10:14 AM EDT [facility] MCV 89.2 79.0 - 98.0 FL LAB HEMETOLOGY METHOD 08/11/2024 10:14 AM [facility] MCH 29.2 27.0 - 32.0 pcg LAB HEMETOLOGY METHOD 08/11/2024 10:14 AM [facility] MCHC 32.8 32.0 - 37.0 g/dL LAB HEMETOLOGY METHOD 08/11/2024 10:14 AM [facility] RDW 13.4 11.0 - 15.0 % LAB HEMETOLOGY METHOD 08/11/2024 10:14 AM [facility] Platelets 350 130 - 400 K/mcL LAB HEMETOLOGY METHOD 08/11/2024 10:14 AM [facility] MPV 9.9 7.0 - 11.0 FL LAB HEMETOLOGY METHOD 08/11/2024 10:14 AM [facility] NRBC 0.0 <1.0 % LAB HEMETOLOGY METHOD 08/11/2024 10:14 AM [facility] NRBC Absolute 0.00 <0.10 K/mcL LAB HEMETOLOGY METHOD 08/11/2024 10:14 AM [facility] Neutrophils Relative 57.7 % LAB HEMETOLOGY METHOD 08/11/2024 10:14 AM [facility] Lymphocytes Relative 31.2 % LAB HEMETOLOGY METHOD 08/11/2024 10:14 AM [facility] Monocytes Relative 9.7 % LAB HEMETOLOGY METHOD 08/11/2024 10:14 AM [facility] Eosinophils Relative 0.9 % LAB HEMETOLOGY METHOD 08/11/2024 10:14 AM [facility] Basophils Relative 0.4 % LAB HEMETOLOGY METHOD 08/11/2024 10:14 AM [facility] Immature Granulocytes Relative 0.1 % LAB HEMETOLOGY METHOD 08/11/2024 10:14 AM [facility] Neutrophils Absolute 3.99 1.50 - 7.00 K/mcL LAB HEMETOLOGY METHOD 08/11/2024 10:14 AM [facility] Lymphocytes Absolute 2.16 1.00 - 5.00 K/mcL LAB HEMETOLOGY METHOD 08/11/2024 10:14 AM EDT [facility] Monocytes Absolute 0.67 0.20 - 1.00 K/mcL LAB HEMETOLOGY METHOD 08/11/2024 10:14 AM EDT [facility] Eosinophils Absolute 0.06 0.00 - 0.50 K/mcL LAB HEMETOLOGY METHOD 08/11/2024 10:14 AM EDT [facility] Basophils Absolute 0.03 0.00 - 0.20 K/mcL LAB HEMETOLOGY METHOD 08/11/2024 10:14 AM EDT [facility] Immature Granulocytes Absolute 0.01 0.00 - 0.03 K/mcL LAB HEMETOLOGY METHOD 08/11/2024 10:14 AM EDT [facility] Blood Venous blood specimen / Unknown Venipuncture / Unknown 08/11/2024 8:02 AM EDT 08/11/2024 8:02 AM EDT Jaime Bach MD LAB BLOOD ORDERA BLES Final Result [facility] [address] [place] [address], * Iron and TIBC (08/11/2024 8:02 AM EDT) Only the most recent of2 resultswithin the time period is included. Iron 92 40 - 150 mcg/dL LAB CHEMISTRY METHOD 08/11/2024 10:45 AM EDT [facility] TIBC 432 250 - 450 mcg/dL LAB CHEMISTRY METHOD 08/11/2024 10:45 AM EDT [facility] Iron Saturation 21 15 - 50 % LAB CHEMISTRY METHOD 08/11/2024 10:45 AM EDT [facility] Blood Venous blood specimen / Unknown Venipuncture / Unknown 08/11/2024 8:02 AM EDT 08/11/2024 8:02 AM EDT Jaime Bach MD LAB BLOOD ORDERA BLES Final Result [facility] [address] [place] [address], [place] [phone] * Hemoglobin A1c (08/11/2024 8:02 AM EDT) Pathologist [facility] Hemoglobin A1C 5.4 <6.5 % LAB CHEMISTRY METHOD 08/11/2024 2:26 PM EDT [facility] Mean Bld Glu Estim. 108 mg/dL LAB CHEMISTRY METHOD 08/11/2024 2:26 PM EDT [facility] Blood Venous blood specimen / Unknown Venipuncture / Unknown 08/11/2024 8:02 AM EDT 08/11/2024 8:02 AM EDT Jaime Bach MD LAB BLOOD ORDERA BLES Final Result Performing Organization Address City/[facility]/ZIP Co de Phone Number [facility] [address] [place] [address], [place] [phone] * Ferritin (08/11/2024 8:02 AM EDT) [facility] Ferritin 15 8 - 252 ng/mL LAB CHEMISTRY METHOD 08/11/2024 10:45 AM EDT [facility] Blood Venous blood specimen / Unknown Venipuncture / Unknown 08/11/2024 8:02 AM EDT 08/11/2024 8:02 AM EDT Jiame Bach MD LAB BLOOD ORDERA BLES Final Result Performing Organization Address City/[facility]/ZIP Co de Phone Number [facility] [address] [place] [address], [place] [phone] * XR Hip 2-3 Views Right (08/10/2024 [...] Signed Date: 08/10/2024 14:33 ET Workstation ID: [id number] Transcribed By: Self Edit Transcribed Date: 08/10/2024 14:33 ET Narrative 08/10/2024 2:33 PM EDT HISTORY: right hip pain TECHNIQUE: Frontal and lateral radiographs of the right hip. COMPARISON: None FINDINGS: No fracture or dislocation is seen. The hip joint is well-maintained with normal alignment. The femoral head is well-seated within the acetabulum. ??IUD is present overlying the pelvis. Procedure Note Donterll William MD - 08/10/2024 HISTORY: right hip [...] Signed Date: 08/10/2024 14:33 ET Workstation ID: [id number] Transcribed By: Self Edit Transcribed Date: 08/10/2024 14:33 ET Jaime Bach MD IMG XR PROCEDURE S Final Result * Zinc (06/30/2024 1:30 PM EST) Zinc 65 60 - 130 ug/dL 07/03/2024 12:15 PM EST [facility] Comment: Elevated results may be due to sample collected in a non-certified trace element-free tube. This test was developed and the performance characteristics determined by [facility]. It has not been cleared or approved by the FDA. The laboratory is regulated under CLIA as qualified to perform high-complexity testing. This test is used for patient testing purposes. It should not be regarded as investigational or for research. Test performed at [facility], [address] , [place], [place] ??[address] ? [phone] Usha Norton MD, PhD - Roll Cutter Blood Venous blood specimen / Unknown Venipuncture / Unknown 06/30/2024 1:30 PM EST 06/30/2024 1:30 PM EST Stephanie MAJOR LAB BLOOD ORDERABLES Final R esult [facility] [address] [place] [address] * Selenium serum (06/30/2024 1:30 PM EST) Selenium 100 63 - 160 mcg/L 07/10/2024 4:40 AM EST [facility] Comment: (Note) This test was developed and its analytical performance characteristics have been determined by [employer]. It has not been cleared or approved by the FDA. This assay has been validated pursuant to the CLIA regulations and is used for clinical purposes. [facility] [address] [address],[address] [facility] [address] Karly Lozano MD, PhD Test Performed at: [facility] [address] [address], [address] [place], [place] ??[address] ? June Lozano MD, PhD Blood Venous blood specimen / Unknown Venipuncture / Unknown 06/30/2024 1:30 PM EST 06/30/2024 1:30 PM EST Stephanie MAJOR LAB BLOOD ORDERABLES Final R esult [facility] [address] [place] [address] * (ABNORMAL) Vitamin D 25 hydroxy (06/30/2024 1:30 PM EST) [facility] Vit D, 25-Hydroxy 15.1(L) 30.0 - 80.0 ng/mL LAB CHEMISTRY METHOD 06/30/2024 7:02 PM EST [facility] Blood Venous blood specimen / Unknown Venipuncture / Unknown 06/30/2024 1:30 PM EST 06/30/2024 1:30 PM EST Stephanie MAJOR LAB BLOOD ORDERABLES Final R [facility] [address] [place] [address], [place] [phone] * Vitamin B1 (06/30/2024 1:30 PM EST) [facility] Vitamin B1 Whole Blood 68 38 - 122 ug/L 07/06/2024 12:22 PM EST [facility] Comment: This test was developed and the performance characteristics determined by [facility]. It has not been cleared or approved by the FDA. The laboratory is regulated under CLIA as qualified to perform high-complexity testing. This test is used for patient testing purposes. It should not be regarded as investigational or for research. Test performed at [facility], [address] , [place], [place] ??[address] ? [phone] Usha Norton MD, PhD - Roll Cutter Blood Venous blood specimen / Unknown Venipuncture / Unknown 06/30/2024 1:30 PM EST 06/30/2024 1:30 PM EST Stephanie MAJOR LAB BLOOD ORDERABLES Final R esult [facility] [address] [place] [address] * (ABNORMAL) Vitamin B6 (06/30/2024 1:30 PM EST) Pathologist [facility] Vitamin B6 (Pyridoxine) Level 103(H) 5 - 50 ug/L 07/06/2024 1:02 PM EST [facility] Comment: This test was developed and the performance characteristics determined by [facility]. It has not been cleared or approved by the FDA. The laboratory is regulated under CLIA as qualified to perform high-complexity testing. This test is used for patient testing purposes. It should not be regarded as investigational or for research. Test performed at [facility], [address] [place], [place] ??[address] ? [phone] Usha Norton MD, PhD - Roll Cutter Blood Venous blood specimen / Unknown Venipuncture / Unknown 06/30/2024 1:30 PM EST 06/30/2024 1:30 PM EST Stephanie MAJOR LAB BLOOD ORDERABLES Final R esult Performing Organization Address [facility] Co de Phone Number [facility] [address] [place] [address] * Folate (06/30/2024 1:30 PM EST) [facility] Folate 3.6 2.8 - 17.0 ng/ml LAB CHEMISTRY METHOD 06/30/2024 7:17 PM EST [facility] Blood Venous blood specimen / Unknown Venipuncture / Unknown 06/30/2024 1:30 PM EST 06/30/2024 1:30 PM EST Stephanie MAJOR LAB BLOOD ORDERABLES Final R esult Performing Organization Address City/[facility]/ZIP Co de Phone Number [facility] [address] [place] [address], [place] [phone] * Vitamin B12 (06/30/2024 1:30 PM EST) Vitamin B-12 421 250 - 900 pcg/mL LAB CHEMISTRY METHOD 06/30/2024 7:17 PM EST [facility] Blood Venous blood specimen / Unknown Venipuncture / Unknown 06/30/2024 1:30 PM EST 06/30/2024 1:30 PM EST Stephanie MAJOR LAB BLOOD ORDERABLES Final R esult [facility] [address] [place] [address], * Albumin (06/30/2024 1:30 PM EST) Pathologist [facility] Albumin 3.9 3.2 - 5.0 g/dL LAB CHEMISTRY METHOD 06/30/2024 6:50 PM EST [facility] Blood Venous blood specimen / Unknown Venipuncture / Unknown 06/30/2024 1:30 PM EST 06/30/2024 1:30 PM EST Stephanie MAJOR LAB BLOOD ORDERABLES Final R esult [facility] [address] [place] [address], [place] [phone] * Magnesium (06/08/2024 7:15 PM EST) Magnesium 2.1 1.9 - 2.6 mg/dL LAB CHEMISTRY METHOD 06/08/2024 8:03 PM EST [facility] Blood Venous blood specimen / Unknown Venipuncture / Unknown 06/08/2024 7:15 PM EST 06/08/2024 7:31 PM EST Jameel MAJOR LAB BLOOD ORDERABLES Final R esult [facility] [address] [place] [address], [place] [phone] * (ABNORMAL) Basic metabolic panel (06/08/2024 7:15 PM EST) Sodium 137 133 - 145 mmol/L LAB CHEMISTRY METHOD 06/08/2024 8:05 PM [facility] Potassium 5.3 3.5 - 5.5 mmol/L LAB CHEMISTRY METHOD 06/08/2024 8:05 PM [facility] Chloride 110 96 - 110 mmol/L LAB CHEMISTRY METHOD 06/08/2024 8:05 PM [facility] CO2 25 21 - 32 mmol/L LAB CHEMISTRY METHOD 06/08/2024 8:05 PM [facility] Anion Gap 2(L) 3 - 11 LAB CHEMISTRY METHOD 06/08/2024 8:05 PM [facility] Glucose 100 70 - 100 mg/dL LAB CHEMISTRY METHOD 06/08/2024 8:05 PM [facility] BUN 14 5 - 25 mg/dL LAB CHEMISTRY METHOD 06/08/2024 8:05 PM [facility] Creatinine 0.69 0.50 - 1.10 mg/dL LAB CHEMISTRY METHOD 06/08/2024 8:05 PM [facility] eGFR 117 >=60 mL/min/1. 73m2 LAB CHEMISTRY METHOD 06/08/2024 8:05 PM [facility] Comment:Calculation based on the??Chronic Kidney Disease Epidemiology Collaboration (CKD-EPI) equation refit??without adjustment for race. BUN/Creatinine Ratio 20.3 LAB CHEMISTRY METHOD 06/08/2024 8:05 PM [facility] Calcium 8.6 8.5 - 10.5 mg/dL LAB CHEMISTRY METHOD 06/08/2024 8:05 PM [facility] Blood Venous blood specimen / Unknown Venipuncture / Unknown 06/08/2024 7:15 PM EST 06/08/2024 7:31 PM EST us Jameel MAJOR LAB BLOOD ORDERABLES Final R esult [facility] [address] [place] [address], * Pap Smear (08/08/2022) Pap smear no interpretation , abstracted Historical Provider HEALTH MAINTENANCE Final Result * HIV Screening (03/30/2015) HIV Screening abstracted Historical Provider HEALTH MAINTENANCE Final Result from Last 3 Months or Most Recently Relevant to Health Maintenance Insurance [employer] Care Teams Conservation Science Officer Relationship Specialty Start Date End Date Jaime Bach MD [address] [place] [id number] PCP - General Internal Medicine 06/04/24
--- OUTSIDE RECORDS SUMMARY | 2024-09-01 12:35 | XMS_ITS | Encounter Summary ---
Author Organization [facility] Address [address] [place] [address] Care Team Providers Care Pump Servicer Name Role Phone Jaime Bach MD Primary Care Pr ovider Encounter Details Date Type Department Care Team ([facility] st Contact Info) Description 07/29/2024 Telephone Bariatric Surgery - [place] [address] [facility] [address] [place] [address] Stephanie Sauceda PA 175 [facility] [address] [place] [address] Social History Tobacco Use Types Packs/Day Years [...] your loved ones. For example, early childhood teacher or elderly care for an older adult? [...] 09/22/2024 1:00 PM EDT Office Visit Orthopedics [address] [phone] Mazin Sabillon PA [address] [place], [place] 09/23/2024 9:15 AM EDT Office Visit Bariatric Surgery - [place] [address] [phone] Stephanie Sauceda PA [address] [address] 02/08/2025 9:45 AM EDT Office Visit Adult Medicine [address] [phone] Jaime Bach MD [address] [place] [address] documented as of this encounter Visit Diagnoses Not on filedocumented in this encounter Care Teams Pump Servicer Relationship Specialty Start Date End Date Jaime Bach MD [address] [place] [address] PCP - General Internal Medicine 06/04/24 documented as of this encounter
[2024-09-02 09:24] LABS: Bacterial Vaginosis PCR NEGATIVE (Negative); Candida Group PCR DETECTED (Not Detect); Candida glab krusei PCR NOT DETECTED (Not Detect); Trichomonas vaginalis PCR NOT DETECTED (Not Detect)
[2024-09-02 10:41] LABS: CT PCR NOT DETECTED (Not Detect.); NG PCR NOT DETECTED (Not Detect.)
[2024-09-07 15:22] LABS: HPV Genotype 16 Negative (Negative); HPV Genotype 18 Negative (Negative); HPV High Risk Negative (Negative)
== END 2024-09-01 09:47 | disposition home or self-care (01) ==
LOC: HO.LNP 09:46
PROVIDERS: PCP Internal Medicine; Visit Provider Advanced Practice Midwife
DX: Z01.411 Encounter for gynecological examination (general) (routine) with abnormal findings (principal); N64.4 Mastodynia; Z20.2 Contact with and (suspected) exposure to infections with a predominantly sexual mode of transmission
CPT/HCPCS: 81515; 86780; 86803; 87340; 87389; 87491; 87591; 87626; 88175; 99212; 99395; 99459

== ENCOUNTER 2024-09-01 10:33 | Outpatient (REF) | payer OTHER, SELFPAY ==
--- OUTSIDE RECORDS SUMMARY | 2024-09-01 12:35 | XMS_ITS | Encounter Summary ---
Author Organization [facility] Address [address] [place] [address] Care Team Providers Care Neurology Physician Assistant Name Role Phone Vasu Osei MD Primary Care Provider + [phone] Jasmeet Veliz MD Primary Care Provider Chay Berg MD Primary Care Provider Jaime Whyte MD Primary Care Provider + Jasmeet Veliz MD Primary Care Provider Herbie Silver MD Primary Care Provider Jaime Whyte MD Primary Care Provider + Encounter Details Date Type Department Care Team Description 03/01/[facility] [address] [place] [address] Erika Watson MD Social History Tobacco Use Types Packs/Day Years Used Date Smoking Tobacco: Never Smokeless Tobacco: Never Alcohol Use Standard Drinks/Week Comments Not Currently 0 (1 standard drink = 0.6 oz pur e alcohol) Education Answer Date Recorded What is the highest level of school you have completed or the highest degree you have received? Some college, no degree 02/22/2020 Sex Assigned at Date Recorded Not on file Job Start Date Occupation Industry Not on file Not on file Not on file COVID-19 Exposure Response Date Recorded In the last month, have you been in contact with someone who was confirmed or suspected to have Coronavirus / COVID-19? No / Unsure 02/22/2020 1:20 PM EDT documented as of this encounter Plan of Treatment Not on file documented as of this encounter Visit Diagnoses Not on filedocumented in this encounter Care Teams Neurology Physician Assistant Relationship Specialty Start Date End Date Vasu Osei MD [address] [place] [address] PCP - General Internal Medicine 11/10/14 10/11/20 Jasmeet Veliz MD [address] [place], [place] [phone] PCP - General Internal Medicine 10/12/20 06/26/21 Chay Godoy MD [address] [place], [place] [phone] PCP - General Internal Medicine 06/27/21 12/24/21 Jaime Bach MD [address] [place] [address] PCP - General Internal Medicine 12/25/21 03/12/22 Jasmeet Veliz MD [address] [place], [place] [phone] PCP - General Internal Medicine 03/13/22 03/13/22 Herbie Muse MD [address] [place] [address] PCP - General Family Practice 03/14/22 09/11/22 Jaime Bach MD [address] [place] [address] PCP - General Internal Medicine 09/12/22 documented as of this encounter
--- OUTSIDE RECORDS SUMMARY | 2024-09-01 12:35 | XMS_ITS | Encounter Summary ---
Author Organization [facility] Address [address] [place] [address] Care Team Providers Care Dry Color Mixer Name Role Phone Herbie Muse MD Primary Care Provider Jaime Whyte MD Primary Care Provider + Reason for Visit * Reason Comments E-prescribe Rx Request Encounter Details Date Type Department Care Team Description 09/02/2022 Refill Bariatric Surgery [facility] [address] [facility] [address] [place] [address] Stephanie Sauceda PA-C [address] [facility] [address] [place] [address] E-prescribe Rx Request Social History Tobacco Use Types Packs/Day Years [...] Exposure Response Date Recorded In the last 10 days, have yo u been in contact with someone who was confirmed or suspected to have Coronavirus/COVID-19? Unable to assess 08/15/2022 8:00 AM EDT documented as of this encounter Plan of Treatment Not on file documented as of this encounter Visit Diagnoses Not on filedocumented in this encounter Care Teams Dry Color Mixer Relationship Specialty Start Date End Date Herbie Muse MD PCP - General Family Practice 03/14/22 09/11/22 Jaime Bach MD [address] [place] [address] PCP - General Internal Medicine 09/12/22 documented as of this encounter
--- OUTSIDE RECORDS SUMMARY | 2024-09-01 12:35 | XMS_ITS | Encounter Summary ---
Author Organization [facility] Address [address] [place] [address] Care Team Providers Care Gas Worker Name Role Phone Herbie Muse MD Primary Care Provider Jaime Whyte MD Primary Care Provider + Encounter Details Date Type Department Care Team Description 06/18/2022 Form Block Maker Report Medical Records [address] [place] [id number] Cesilia Nunes CNM Social History Tobacco Use Types Packs/Day Years [...] file Not on file Not on file documented as of this encounter Plan of Treatment Not on file documented as of this encounter Visit Diagnoses Not on filedocumented in this encounter Care Teams Gas Worker Relationship Specialty Start Date End Date Herbie Muse MD PCP - General Family Practice 03/14/22 09/11/22 Jaime Bach MD [address] [place] [address] PCP - General Internal Medicine 09/12/22 documented as of this encounter
--- OUTSIDE RECORDS SUMMARY | 2024-09-01 12:35 | XMS_ITS | Encounter Summary ---
Author Organization [facility] Address [address] [place] [address] Care Team Providers Care Pilot Fuel Engineer Name Role Phone Vasu Osei MD Primary Care Provider + [phone] Jasmeet Veliz MD Primary Care Provider Chay Berg MD Primary Care Provider Jaime Whyte MD Primary Care Provider + Jasmeet Veliz MD Primary Care Provider Herbie Silver MD Primary Care Provider Jaime Whyte MD Primary Care Provider + Encounter Details Date Type Department Care Team Description 05/14/2019 Old Medical Records Medical Records [address] [place] [address] Abstract, Provider Social History Tobacco Use Types Packs/Day Years Used Date Smoking Tobacco: Never Smokeless Tobacco: Never Alcohol Use Standard Drinks/Week Comments No 0 (1 standard drink = 0.6 oz pur e alcohol) Sex Assigned at Date Recorded Not on file Job Start Date Occupation Industry Not on file Not on file Not on file documented as of this encounter Plan of Treatment Not on file documented as of this encounter Visit Diagnoses Not on filedocumented in this encounter Care Teams Pilot Fuel Engineer Relationship Specialty Start Date End Date Vasu Osei MD [address] [place] [address] PCP - General Internal Medicine 11/10/14 10/11/20 Jasmeet Veliz MD [address] [place] [address] PCP - General Internal Medicine 10/12/20 06/26/21 Chay Godoy MD [address] [place] [phone] PCP - General Internal Medicine 06/27/21 12/24/21 Jaime Bach MD [address] [place] [address] PCP - General Internal Medicine 12/25/21 03/12/22 Jasmeet Veliz MD [address] [place] [address] PCP - General Internal Medicine 03/13/22 03/13/22 Herbie Muse MD [address] [place] [address] PCP - General Family Practice 03/14/22 09/11/22 Jaime Bach MD [address] [place] [address] PCP - General Internal Medicine 09/12/22 documented as of this encounter
--- OUTSIDE RECORDS SUMMARY | 2024-09-01 12:35 | XMS_ITS | Encounter Summary ---
Author Organization [facility] Address [address] [place] [address] Care Team Providers Care Business Education Instructor Name Role Phone Jaime Bach MD Primary Care Provider + Encounter Details Date Type Department Care Team Description 12/03/2022 Electronics Maintenance Technician Report Medical Records [address] [place] [address] Abstract, Provider Social History Tobacco Use Types [...] on filedocumented in this encounter Care Teams Business Education Instructor Relationship Specialty Start Date End Date Jaime Bach MD [address] [place] [address] PCP - General Internal Medicine 09/12/22 documented as of this encounter
--- OUTSIDE RECORDS SUMMARY | 2024-09-01 12:35 | XMS_ITS | Encounter Summary ---
Author Organization [facility] Address [address] [place] [address] Care Team Providers Care Greenhouse Or Nursery Transplanter Name Role Phone Jaime Bach MD Primary Care Provider + Encounter Details Date Type Department Care Team Description 12/21/2022 Tanning Salon Attendant Report Medical Records [address] [place] [address] Cesilia Nunes CNM Social History Tobacco Use [...] on filedocumented in this encounter Care Teams Greenhouse Or Nursery Transplanter Relationship Specialty Start Date End Date Jaime Bach MD [address] [place] [address] PCP - General Internal Medicine 09/12/22 documented as of this encounter
--- OUTSIDE RECORDS SUMMARY | 2024-09-01 12:35 | XMS_ITS | Encounter Summary ---
Author Organization [facility] Address [address] [place] [address] Care Team Providers Care Head Grinder Name Role Phone Vasu Osei MD Primary Care Provider + [phone] Jasmeet Veilz MD Primary Care Provider Chay Berg MD Primary Care Provider Jaime Whyte MD Primary Care Provider + Jasmeet Veliz MD Primary Care Provider Herbie Silver MD Primary Care Provider Jaime Whyte MD Primary Care Provider + Encounter Details Date Type Department Care Team Description 08/24/2016 Release of Information Medical Records [address] [place] [address] Abstract, Provider Social History Tobacco Use Types Packs/Day Years Used Date Smoking Tobacco: Never Alcohol Use Standard Drinks/Week Comments Yes 0 (1 standard drink = 0.6 oz pure alcohol) 5 shots and 3 drinks twice monthly Sex Assigned at Date Recorded Not on file Job Start Date Occupation Industry Not on file Not on file Not on file documented as of this encounter Plan of Treatment Not on file documented as of this encounter Visit Diagnoses Not on filedocumented in this encounter Care Teams Head Grinder Relationship Specialty Start Date End Date Vasu Osei MD [address] [place] [address] PCP - General Internal Medicine 11/10/14 10/11/20 Jasmeet Veliz MD [address] [place] [address] PCP - General Internal Medicine 10/12/20 06/26/21 Chay Godoy MD [address] [place] [address] PCP - General Internal Medicine 06/27/21 12/24/21 Jaime Bach MD [address] [place] [address] PCP - General Internal Medicine 12/25/21 03/12/22 Jasmeet Veliz MD [address] [place] [address] PCP - General Internal Medicine 03/13/22 03/13/22 Herbie Muse MD [address] [place] [address] PCP - General Family Practice 03/14/22 09/11/22 Jaime Bach MD [address] [place] [address] PCP - General Internal Medicine 09/12/22 documented as of this encounter
--- OUTSIDE RECORDS SUMMARY | 2024-09-01 12:35 | XMS_ITS | Encounter Summary ---
Author Organization [facility] Address [address] [place] [address] Care Team Providers Care Hand Cloth Examiner Name Role Phone Vasu Osei MD Primary Care Provider + [phone] Jasmeet Veliz MD Primary Care Provider Chay Berg MD Primary Care Provider Jaime Whyte MD Primary Care Provider + Jasmeet Veliz MD Primary Care Provider Herbie Silver MD Primary Care Provider Jaime Whyte MD Primary Care Provider + Encounter Details Date Type Department Care Team Description 07/07/2020 Novelties Sales Representative Report Medical Records [address] [place] [id number] Ady Gallardo Social History Tobacco Use Types Packs/Day Years Used Date Smoking Tobacco: Never Smokeless Tobacco: Never Alcohol Use Standard Drinks/Week Comments Yes 0 (1 standard drink = 0.6 oz pur e alcohol) 1 glass of wine 1x per month Education Answer Date Recorded What is the [...] on filedocumented in this encounter Care Teams Hand Cloth Examiner Relationship Specialty Start Date End Date Vasu Osei MD [address] [place], [place] [phone] PCP - General Internal Medicine 11/10/14 10/11/20 Jasmeet Veliz MD [address] [place] [address] PCP - General Internal Medicine 10/12/20 06/26/21 Chay Godoy MD [address] [place], [place] [phone] PCP - General Internal Medicine 06/27/21 12/24/21 Jaime Bach MD [address] [place] [address] PCP - General Internal Medicine 12/25/21 03/12/22 Jasmeet Veliz MD [address] [place] [address] PCP - General Internal Medicine 03/13/22 03/13/22 Herbie Muse MD [address] [place], [place] [phone] PCP - General Family Practice 03/14/22 09/11/22 Jaime Bach MD [address] [place] [address] PCP - General Internal Medicine 09/12/22 documented as of this encounter
--- OUTSIDE RECORDS SUMMARY | 2024-09-01 12:35 | XMS_ITS | Clinical Summary ---
Author Organization [facility] Address [address] [place] [address] Care Team Providers Care Negative Developer Name Role Phone Jaime Bach MD Primary Care Provider + Allergies No known active allergies Medications Medication Sig Dispensed Refills Start Date End Date Status levonorgestrel (MIRENA) 20 MCG/24HR IUD 1 Each by Intrauterine route once. 0 Active ALBUTEROL SULFATE (ProAir HFA) 108 (90 Base) MCG/ACT Aero SolnIndications:Pos t-COVID chronic dyspnea Inhale 2 Puffs into the lungs 4 times daily as needed for Cough or Wheezing. 15 g 5 09/12/2022 Active acetaminophen (Acetaminophen 8 Hour) 650 MG CR tabletIndications:L umbar spondylolysis Take 1 Tablet by mouth every 8 hours as needed for Pain. 90 Tablet 0 09/12/2022 Active docusate sodium (COLACE) 100 MG capsuleIndications: Iron deficiency anemia, unspecified iron deficiency anemia type Take 1 Capsule by mouth 2 times daily. 180 Capsule 1 09/12/2022 Active Cholecalciferol (Vitamin D) 50 MCG (2000 UT) CapIndications:Noelle min D deficiency Take 1 Capsule by mouth daily. 90 Capsule 3 01/24/2023 Active tretinoin (RETIN-A) 0.025 % cream APPLY PEA-SIZED AMOUNT TO FACE EVERY OTHER NIGHT AND INCREASE TOLERATED 0 09/02/2023 Active vitamin D (ERGOCALCIFEROL) 1.25 MG (38653 UT) capsule Take 1 Capsule by mouth once a week for 8 doses. 8 Capsule 0 09/11/2023 Active vitamin B-12 (CYANOCOBALAMIN) 1000 MCG tablet Take 1 Tablet by mouth every other day. 45 Tablet 1 09/11/2023 Active Ferrous Sulfate 324 (65 Fe) MG Tab ECIndications:Iron deficiency anemia, unspecified iron deficiency anemia type Take 1 Tablet by mouth 2 times daily. 180 Tablet 1 09/12/2023 Active omeprazole (PRILOSEC) 20 MG capsuleIndications: Gastroesophageal reflux disease without esophagitis TAKE 2 CAPSULES BY MOUTH DAILY FOR 90 DAYS. 180 Capsule 0 12/27/2023 Active Active Problems Problem Noted Date Vitamin B12 deficiency 01/24/2023 CTS (carpal tunnel syndrome) 03/14/2022 Overview: Per patient S/P cholecystectomy 12/06/2020 Calculus of gallbladder without cholecys titis without obstruction 10/20/2020 Vitamin D deficiency 09/14/2020 Iron deficiency anemia 09/14/2020 Lumbar spondylolysis 02/03/2019 Overview: XRay 01/2019- Mild at L4-5 and L5-S1 Overweight (BMI 25.0-29.9) 11/13/2018 Overview: s/p sleeve gastrectomy 2019 GERD (gastroesophageal reflux disease) 0 12/05/2016 Overview: With grade 2 reflux esophagitis Cyst of ovary 12/16/2015 Marijuana use, continuous 11/10/2014 History of sleeve gastrectomy 11/10/2014 Resolved Problems Problem Noted Date Resolved Date COVID-19 virus infection 07/05/2020 022 Class 2 obesity due to exces s calories without serious comorbidity with body mass index (BMI) of 36.0 to 36.9 in adult 04/01/2018 11/13/2018 Hx of laparoscopic gastric banding 07/05/2015 03/14/2022 Alcohol consumption binge drinking 11/10/2014 09/12/2022 Immunizations Name Administration Dates Next Due COVID-19 (Moderna) 01/09/2021,12/12/2020 Tdap 12/02/2017 Family History Medical History Relation Name Comments Cancer of the Lung Aunt paternal non-smoke r Hypertension Maternal Grandmother HLD, ep ilepsy Hypertension Mother HLD Brain Cancer Paternal Grandfather Hypertension Paternal Grandmother vision issues Relation Name Status Comments Aunt paternal Alive Brother x 3 Alive Father Alive Maternal Grandfather Maternal Grandmother [...] file Not on file Not on file Last Filed Vital Signs Vital Sign Reading Time Taken Comments Blood Pressure 100/75 09/30/2023 2:14 PM EDT Pulse 105 09/30/2023 2:14 PM EDT Temperature 36.6 ??C (97.9 ??F) 09/10/2023 2:03 PM ED T Respiratory Rate 16 09/10/2023 2:03 PM EDT Oxygen Saturation 98% 09/30/2023 2:14 PM EDT Inhaled Oxygen Concentration - - Weight 80.7 kg (178 lb) 09/30/2023 2:14 PM EDT Height 167.6 cm (5' 6 ) 09/30/2023 2:14 PM EDT Body Mass Index 28.73 09/30/2023 2:14 PM EDT Plan of Treatment Health Maintenance Due Date Last Done Comments Covid-19 Vaccine (2022-2 4 season) 2024 01/09/2021, 12/12/2020 INFLUENZA (#1) 2024 BMI CHECK/ADVISE 06/03/2024 09/10/2023, , 06/25/2022, Additional history exists DEPRESSION SCREENING/FOLLOWUP 06/03/2024, 03/14/2022, 02/11/2020, Additional history exists SOCIAL NEEDS SCREENING 06/03/2024 , 01/24/2023, 07/04/2020, Additional history exists CERVICAL CANCER SCREENING 08/08/20252022 (External Completion), 05/23/2021 (External Completion) CHOLESTEROL SCREENING 06/27/2026 06/27/2021 , 02/22/2020, 11/19/2018, Additional history exists BASELINE HEALTH EXAM 18-39 03/14/202703/14, 02/22/2020, 02/22/2020, Additional history exists DTAP/TDAP/TD (2 - Td or Tdap) 12/03/2027 12/02/2017 PNEUMOCOCCAL VACCINE FOR HIG H RISK PATIENTS (#1) 2054 Care Teams Negative Developer Relationship Specialty Start Date End Date Jaime Bach MD [address] [place] [id number] PCP - General Internal Medicine 09/12/22
--- OUTSIDE RECORDS SUMMARY | 2024-09-01 12:35 | XMS_ITS | Encounter Summary ---
Author Organization [facility] Address [address] [place] [address] Care Team Providers Care Churner Name Role Phone Herbie Muse MD Primary Care Provider Jaime Whyte MD Primary Care Provider + Encounter Details Date Type Department Care Team Description 08/08/2022 Marketing Content Manager Report Medical Records [address] [place] [id number] Cesilia Nunes CNM Social History Tobacco Use [...] was confirmed or suspected to have Coronavirus/COVID-19? No / Unsure 07/18/2022 9:58 AM EST documented as of this encounter Plan of Treatment Not on file documented as of this encounter Visit Diagnoses Not on filedocumented in this encounter Care Teams Churner Relationship Specialty Start Date End Date Herbie Muse MD PCP - General Family Practice 03/14/22 09/11/22 Jaime Bach MD [address] [place] [address] PCP - General Internal Medicine 09/12/22 documented as of this encounter
--- OUTSIDE RECORDS SUMMARY | 2024-09-01 12:35 | XMS_ITS | Encounter Summary ---
Author Organization [employer] [facility] Address [address] [place] [address] Care Team Providers Care Mosaic Layer Name Role Phone Herbie Muse MD Primary Care Provider Jaime Whyte MD Primary Care Provider + Encounter Details Date Type Department Care Team Description 04/30/[address] Freight Report Medical Records [address] [place] [address] Cesilia Nunes CNM Social History Tobacco Use [...] on filedocumented in this encounter Care Teams Mosaic Layer Relationship Specialty Start Date End Date Herbie Muse MD PCP - General Family Practice 03/14/22 09/11/22 Jaime Bach MD [address] [place] [address] PCP - General Internal Medicine 09/12/22 documented as of this encounter
--- OUTSIDE RECORDS SUMMARY | 2024-09-01 12:35 | XMS_ITS | Encounter Summary ---
Author Organization [facility] Address [address] [place] [address] Care Team Providers Care Supervisor Motor Vehicle Assembly Name Role Phone Jaime Bach MD Primary Care Provider + Encounter Details Date Type Department Care Team Description 10/17/2023 Orders Only Medical Records [address] [place] [address] Jaki Crowder APRN [address] [facility] [place] [address] Social History Tobacco Use Types Packs/Day Years [...] on file documented as of this encounter Procedures Procedure Name Priority Date/Time Associated Diagnosis Comments OUTSIDE NUCLEAR MEDICINE Routine 10/17/2023 documented in this encounter Results * OUTSIDE NUCLEAR MEDICINE (10/17/2023) Jaki Crowder APRN RADIOLOGY documented in this encounter Visit Diagnoses Not on filedocumented in this encounter Care Teams Supervisor Motor Vehicle Assembly Relationship Specialty Start Date End Date Jaime Bach MD [address] [place] [address] PCP - General Internal Medicine 09/12/22 documented as of this encounter
--- OUTSIDE RECORDS SUMMARY | 2024-09-01 12:36 | XMS_ITS | Encounter Summary ---
Author Organization [facility] Address [address] [place] [address] Care Team Providers Care Migration Agent Name Role Phone Jasmeet Veliz MD Primary Care Provider Chay Berg MD Primary Care Provider Jaime Whyte MD Primary Care Provider + Jasmeet Veliz MD Primary Care Provider Herbie Silver MD Primary Care Provider Jaime Whyte MD Primary Care Provider + Encounter Details Date Type Department Care Team Description 05/23/2021 Waiver Analyst Report Medical Records [address] [place] [address] Cesilia Nunes I., GISELA Social History Tobacco Use Types Packs/Day Years Used Date Smoking Tobacco: Never Smokeless Tobacco: Never Alcohol Use Standard Drinks/Week Comments Never 0 (1 standard drink = 0.6 oz [...] on filedocumented in this encounter Care Teams Migration Agent Relationship Specialty Start Date End Date Jasmeet Veliz MD PCP - General Internal Medicine 10/12/20 06/26/21 Chay Godoy MD PCP - General Internal Medicine 06/27/21 12/24/21 Jaime Bach MD [address] [place] [address] PCP - General Internal Medicine 12/25/21 03/12/22 Jasmeet Veliz MD PCP - General Internal Medicine 03/13/22 03/13/22 Herbie Muse MD [address] [place] [address] PCP - General Family Practice 03/14/22 09/11/22 Jaime Bach MD [address] [place] [address] PCP - General Internal Medicine 09/12/22 documented as of this encounter
--- OUTSIDE RECORDS SUMMARY | 2024-09-01 12:36 | XMS_ITS | Encounter Summary ---
Author Organization [facility] Address [address] [place] [address] Care Team Providers Care Industrial Specialist Name Role Phone Vasu Osei MD Primary Care Provider + [phone] Jasmeet Veliz MD Primary Care Provider Chay Berg MD Primary Care Provider Jaime Whyte MD Primary Care Provider + Jasmeet Veliz MD Primary Care Provider Herbie Silver MD Primary Care Provider Jaime Whyte MD Primary Care Provider + Reason for Visit * Reason Onset Date Comments Faxed Order 11/14/2015 ekg Encounter Details Date Type Department Care Team Description 11/14/2015 Telephone Adult Medicine [address] [phone] Vasu Osei MD [address] [place] [address] [phone] Faxed Order (ekg) Social History Tobacco Use Types Packs/Day Years Used Date Smoking Tobacco: Never Alcohol Use Standard Drinks/Week Comments Yes 0 (1 standard drink = 0.6 oz pure alcohol) 5 shots and 3 drinks twice monthly Sex Assigned at Date Recorded Not on file Job Start Date Occupation Industry Not on file Not on file Not on file documented as of this encounter Miscellaneous Notes * Telephone Encounter - Vasu Osei MD - 11/14/2015 12:28 PM EDT eKg ordered * Telephone Encounter - Christina Gregory M.A. - 11/14/2015 12:22 PM EDT Please order ekg, pt has appt 11/18/2015 she is having surgical procedure (cosmetic) in [place] documented in this encounter Plan of Treatment Not on file documented as of this encounter Visit Diagnoses Diagnosis Screening for cardiovascular condition- Primary Screening for other and unspecified cardiovascular conditions documented in this encounter Care Teams Industrial Specialist Relationship Specialty Start Date End Date Vasu Osei MD [address] [place] [address] PCP - General Internal Medicine 11/10/14 10/11/20 Jasmeet Veliz MD [address] [place] [address] PCP - General Internal Medicine 10/12/20 06/26/21 Chay Godoy MD [address] [place] [address] PCP - General Internal Medicine 06/27/21 12/24/21 Jaime Bach MD [address] [place] [address] PCP - General Internal Medicine 12/25/21 03/12/22 Jasmeet Veliz MD [address] [place] [address] PCP - General Internal Medicine 03/13/22 03/13/22 Herbie Muse MD [address] [place], [place] [phone] PCP - General Family Practice 03/14/22 09/11/22 Jaime Bach MD [address] [place] [address] PCP - General Internal Medicine 09/12/22 documented as of this encounter
--- OUTSIDE RECORDS SUMMARY | 2024-09-01 12:36 | XMS_ITS | Encounter Summary ---
Author Organization [facility] Address [address] [place] [address] Care Team Providers Care Fish Culturist Name Role Phone Jasmeet Veliz MD Primary Care Provider Chay Berg MD Primary Care Provider Jaime Whyte MD Primary Care Provider + Jasmeet Veilz MD Primary Care Provider Herbie Silver MD Primary Care Provider Jaime Whyte MD Primary Care Provider + Encounter Details Date Type Department Care Team Description 11/25/2020 [facility] Medical Records [address] [place] [address] Fadia Harden PA Social History Tobacco Use Types Packs/Day Years [...] on filedocumented in this encounter Care Teams Fish Culturist Relationship Specialty Start Date End Date Jasmeet Veliz MD PCP - General Internal Medicine 10/12/20 06/26/21 Chay Godoy MD PCP - General Internal Medicine 06/27/21 12/24/21 Jaime Bach MD [address] [place] [address] PCP - General Internal Medicine 12/25/21 03/12/22 Jasmeet Veliz MD PCP - General Internal Medicine 03/13/22 03/13/22 Herbie Muse MD [address] [place] [address] PCP - General Family Practice 03/14/22 09/11/22 Jaime Bach MD [address] [place] [address] PCP - General Internal Medicine 09/12/22 documented as of this encounter
--- OUTSIDE RECORDS SUMMARY | 2024-09-01 12:36 | XMS_ITS | Encounter Summary ---
Author Organization [facility] Address [address] [place] [address] Care Team Providers Care B Operator Name Role Phone Vasu Osei MD Primary Care Provider + [phone] Jasmeet Veliz MD Primary Care Provider Chay Berg MD Primary Care Provider Jaime Whyte MD Primary Care Provider + Jasmeet Veliz MD Primary Care Provider Herbie Silver MD Primary Care Provider Jaime Whyte MD Primary Care Provider + Encounter Details Date Type Department Care Team Description 03/18/2019 Orders Only Medical Records [address] [address] Delbert Belcher MD [address] [place] [address] [address] [place], [place] [phone] Social History Tobacco Use Types Packs/Day Years [...] Name Priority Date/Time Associated Diagnosis Comments OUTSIDE PLAIN FILM Routine 03/17/2019 documented in this encounter Results * OUTSIDE PLAIN FILM (03/17/2019) Delbert Belcher MD RADIOLOGY documented in this encounter Visit Diagnoses Not on filedocumented in this encounter Care Teams B Operator Relationship Specialty Start Date End Date Vasu Osei MD [address] [place] [address] PCP - General Internal Medicine 11/10/14 10/11/20 Jasmeet Veliz MD [address] [place], [place] [phone] PCP - General Internal Medicine 10/12/20 06/26/21 Chay Godoy MD [address] [place] [address] PCP - General Internal Medicine 06/27/21 12/24/21 Jaime Bach MD [address] [place] [address] PCP - General Internal Medicine 12/25/21 03/12/22 Jasmeet Veliz MD [address] [place] [address] PCP - General Internal Medicine 03/13/22 03/13/22 Herbie Muse MD [address] [place] [address] PCP - General Family Practice 03/14/22 09/11/22 Jaime Bach MD [address] [place] [address] PCP - General Internal Medicine 09/12/22 documented as of this encounter
--- OUTSIDE RECORDS SUMMARY | 2024-09-01 12:36 | XMS_ITS | Encounter Summary ---
Author Organization [facility] Address [address] [place] [address] Care Team Providers Care Waste Specialist Name Role Phone Jasmeet Veliz MD Primary Care Provider Chay Berg MD Primary Care Provider Jaime Whyte MD Primary Care Provider + Jasmeet Veliz MD Primary Care Provider Herbie Silver MD Primary Care Provider Jaime Whyte MD Primary Care Provider + Encounter Details Date Type Department Care Team Description 10/20/2020 Orders Only Medical Records [address] [place] [address] Frank Brown MD [address] [place] [address] Social History Tobacco Use Types Packs/Day Years [...] have Coronavirus / COVID-19? No / Unsure 10/20/2020 11:14 AM EDT documented as of this encounter Progress Notes * Storm Brown MD - 10/29/2020 5:01 PM EDT Dear Ms. Landin biopsies of your stomach did show evidence of inflammation. Please follow up in order to discuss these findings with the referring physician at [facility] gastro[facility].I would like to personally thank you for allowing us to take care of you. Please don't hesitate to call us for any questions or concerns. Regards, Shay Brown MD Board Certified Gastroent erology and Internal Medicine Transplant Hepatology [facility] documented in this encounter Plan of Treatment Not on file documented as of this encounter Procedures Procedure Name Priority Date/Time Associated Diagnosis Comments OUTSIDE PATHOLOGY Routine 10/14/2020 documented in this encounter Results * OUTSIDE PATHOLOGY (10/14/2020) Frank Brown MD OUTSIDE LAB documented in this encounter Visit Diagnoses Not on filedocumented in this encounter Care Teams Waste Specialist Relationship Specialty Start Date End Date Jasmeet Veliz MD PCP - General Internal Medicine 10/12/20 06/26/21 Chay Godoy MD PCP - General Internal Medicine 06/27/21 12/24/21 Jaime Bach MD [address] [place] [address] PCP - General Internal Medicine 12/25/21 03/12/22 Jasmeet Veliz MD PCP - General Internal Medicine 03/13/22 03/13/22 Herbie Muse MD [address] [place] [address] PCP - General Family Practice 03/14/22 09/11/22 Jaime Bach MD [address] [place] [address] PCP - General Internal Medicine 09/12/22 documented as of this encounter
--- OUTSIDE RECORDS SUMMARY | 2024-09-01 12:36 | XMS_ITS | Encounter Summary ---
Author Organization [facility] Address [address] [place] [address] Care Team Providers Care Locker Plant Attendant Name Role Phone Vasu Osei MD Primary Care Provider + [phone] Jasmeet Veliz MD Primary Care Provider Chay Berg MD Primary Care Provider Jaime Whyte MD Primary Care Provider + Jasmeet Veliz MD Primary Care Provider Herbie Silver MD Primary Care Provider Jaime Whyte MD Primary Care Provider + Reason for Visit * Reason Onset Date Comments Ed 01/04/2016 right overy --- looking for 2nd opinon Encounter Details Date Type Department Care Team Description 01/04/2016 Telephone OBN - [address] [phone] Cedric Tripp MD [place] (right overy --- looking for 2nd opinon) Social History Tobacco Use Types Packs/Day Years [...] encounter Miscellaneous Notes * Telephone Encounter - José Luis Smith - 01/06/2016 10:30 AM EDT Spoke with patient, she understands that we need records prior to appt being made. * Telephone Encounter - Osmar Cardona R.N. - 01/04/2016 5:03 PM EDT Left message for call back. JMLisbeth Patient will need to sign JOSÉ LUIS to obtain all clinical records for review prior to scheduling appointment. [place] * Telephone Encounter - José Luis Smith - 01/04/2016 3:48 PM EDT Patient is calling in due to wanting to come her to get a 2nd opionion. She is currently going to [facility]. Dr. Mendoza. She states that they did an xray and there is a mass on her right overy. And they want to do surgery. She is worried about having this one due to already havinghad one 4 years ago. She is currently trying to get and doesn't want to make it so that she can't get . documented in this encounter Plan of Treatment Not on file documented as of this encounter Visit Diagnoses Not on filedocumented in this encounter Care Teams Locker Plant Attendant Relationship Specialty Start Date End Date Vasu Osei MD [address] [place] [address] PCP - General Internal Medicine 11/10/14 10/11/20 Jasmeet Veliz MD [address] [place] [address] PCP - General Internal Medicine 10/12/20 06/26/21 Chay Godoy MD [address] [place] [address] PCP - General Internal Medicine 06/27/21 12/24/21 Jaime Bach MD [address] [place] [address] PCP - General Internal Medicine 12/25/21 03/12/22 Jasmeet Veliz MD [address] [place] [address] PCP - General Internal Medicine 03/13/22 03/13/22 Herbie Muse MD [address] [place] [address] PCP - General Family Practice 03/14/22 09/11/22 Jaime Bach MD [address] [place] [address] PCP - General Internal Medicine 09/12/22 documented as of this encounter
--- OUTSIDE RECORDS SUMMARY | 2024-09-01 12:36 | XMS_ITS | Encounter Summary ---
Author Organization [facility] Address [address] [place] [address] Care Team Providers Care Lens Blocker Name Role Phone Jasmeet Veliz MD Primary Care Provider Chay Berg MD Primary Care Provider Jaime Whyte MD Primary Care Provider + Jasmete Veliz MD Primary Care Provider Herbie Silver MD Primary Care Provider Jaime Whyte MD Primary Care Provider + Reason for Visit * Reason Comments E-prescribe Rx Request Encounter Details Date Type Department Care Team Description 11/28/2020 Refill Adult Medicine [address] [phone] Rachael Henriquez PA-C [address] [place] [address] [phone] E-prescribe Rx Request Social History Tobacco Use [...] encounter Miscellaneous Notes * Telephone Encounter - Malia Winter M.A. - 11/30/2020 4:03 PM EDT Pt needs repeat labs * Telephone Encounter - Charlene Chun - 2020 1:39 PM EDT Patient would like script to be: E-PRESCRIBED/FAXED TO PHARMACY WHEN WAS THE PATIENT'S LAST APPOINTMENT IN ADULT MEDICINE? 09/13/20 WHEN WAS THE LAST TIME THE PATIENT SAW THEIR PCP? Has not seen Does patient have an upcoming appointment? No-unable to reach left [facility] to call for appointment due to refill request. (THE MEDICATION REQUESTED IS ON THE MED LIST ABOVE) All of the medications requested were on the CURRENT MEDS list Did you check the Pharmacy information above?: YES Patient wants: 90 -day supply Is this a mail order prescription request ? NO If the refill is from a FAXED refill request what is the RX # listed on the fax? N/A Patients current insurance carrier is: Payor: [employer] FFS / Plan: [facility] / Product Type: MEDICAID RISK documented in this encounter Plan of Treatment Not on file documented as of this encounter Visit Diagnoses Not on filedocumented in this encounter Care Teams Lens Blocker Relationship Specialty Start Date End Date Jasmeet Veliz MD PCP - General Internal Medicine 10/12/20 06/26/21 Chay Godoy MD PCP - General Internal Medicine 06/27/21 12/24/21 Jaime Bach MD [address] [place] [address] PCP - General Internal Medicine 12/25/21 03/12/22 Jasmeet Veliz MD PCP - General Internal Medicine 03/13/22 03/13/22 Herbie Muse MD [address] [place] [address] PCP - General Family Practice 03/14/22 09/11/22 Jaime Bach MD [address] [place] [address] PCP - General Internal Medicine 09/12/22 documented as of this encounter
--- OUTSIDE RECORDS SUMMARY | 2024-09-01 12:36 | XMS_ITS | Encounter Summary ---
Author Organization [facility] Address [address] [place] [address] Care Team Providers Care Metal Building Assembler Name Role Phone Vasu Osei MD Primary Care Provider + [phone] Jasmeet Veliz MD Primary Care Provider Chay Berg MD Primary Care Provider Jaime Whyte MD Primary Care Provider + Jasmeet Veliz MD Primary Care Provider Herbie Silver MD Primary Care Provider Jaime Whyte MD Primary Care Provider + Encounter Details Date Type Department Care Team Description 03/12/2018 Transfer Records Medical Records [address] [place] [address] Abstract, Provider Social History Tobacco Use Types [...] on filedocumented in this encounter Care Teams Metal Building Assembler Relationship Specialty Start Date End Date Vasu Osei MD [address] [place] [address] PCP - General Internal Medicine 11/10/14 10/11/20 Jasmeet Veliz MD [address] [place] [address] PCP - General Internal Medicine 10/12/20 06/26/21 Chay Godoy MD [address] [place] [address] PCP - General Internal Medicine 06/27/21 12/24/21 Jaime Bach MD [address] [place] [address] PCP - General Internal Medicine 12/25/21 03/12/22 Jasmeet Veliz MD [address] [place] [address]573 PCP - General Internal Medicine 03/13/22 03/13/22 Herbie Muse MD [address] [place] [address] PCP - General Family Practice 03/14/22 09/11/22 Jaime Bach MD [address] [place] [address] PCP - General Internal Medicine 09/12/22 documented as of this encounter
--- OUTSIDE RECORDS SUMMARY | 2024-09-01 12:36 | XMS_ITS | Encounter Summary ---
[facility] Organization [facility] Address [address] [place] [address] Care Team Providers Care Spray Gun Operator Name Role Phone Vasu Osei MD Primary Care Provider + [phone] Jasmeet Veliz MD Primary Care Provider Chay Berg MD Primary Care Provider Jaime Whyte MD Primary Care Provider + Jasmeet Veliz MD Primary Care Provider Herbie Silver MD Primary Care Provider Jaime Whyte MD Primary Care Provider + Encounter Details Date Type Department Care Team Description 11/12/2014 Release of Information Medical Records [address] [place] [id number] Abstract, Provider Social History Tobacco Use Types [...] on filedocumented in this encounter Care Teams Spray Gun Operator Relationship Specialty Start Date End Date Vasu Osei MD [address] [place] [phone] PCP - General Internal Medicine 11/10/14 10/11/20 Jasmeet Veliz MD [address] [place] [address] PCP - General Internal Medicine 10/12/20 06/26/21 Chay Godoy MD [address] [place] [address] PCP - General Internal Medicine 06/27/21 12/24/21 Jaime Bach MD [address] [place] [address] PCP - General Internal Medicine 12/25/21 03/12/22 Jasmeet Veliz MD [address] [place] [address] PCP - General Internal Medicine 03/13/22 03/13/22 Herbie Muse MD [address] [place] [address] PCP - General Family Practice 03/14/22 09/11/22 Jaime Bach MD [address] [place] [phone] PCP - General Internal Medicine 09/12/22 documented as of this encounter
== END 2024-09-01 10:34 | disposition home or self-care (01) ==
LOC: HO.LAB 10:33
PROVIDERS: Visit Provider Advanced Practice Midwife
DX: Z13.89 Encounter for screening for other disorder (principal)

== ENCOUNTER 2024-09-01 10:48 | Outpatient (REF) | payer OTHER, SELFPAY | END 2024-09-01 10:49 | disposition home or self-care (01) | LOC: HO.LAB 10:48 | PROVIDERS: Visit Provider Advanced Practice Midwife | DX: Z13.89 Encounter for screening for other disorder (principal) ==

== ENCOUNTER 2024-10-13 09:55 | Outpatient (REF) | payer OTHER, SELFPAY ==
--- NOTE | ~2024-10-13 | MM_ITS ---
EXAMINATION: MM DIAGNOSTIC DIGITAL BREAST TOMOSYNTHESIS, BILATERAL Limited left breast ultrasound. CLINICAL INFORMATION: Left breast pain 2:00 off-and-on for a few months. Patient feels with & the nipple at times no visible discharge. COMPARISON: Mammography: Baseline. TECHNIQUE: Digital breast mammography with tomosynthesis is performed in both the craniocaudal and mediolateral oblique views along with computer-aided detection (CAD). FINDINGS: The breasts are heterogeneously dense, which may obscure small masses (ACR BI-RADS breast composition Category c). [place] marker at the site of patient's pain in the left breast upper outer breast without underlying abnormality. There are no significant masses, abnormal calcifications, or other abnormalities. Targeted color Doppler ultrasound scanning in the left breast area of patient's pain from 12-4 o'clock demonstrates an incidental minimally complicated cyst at 2:00 5 cm from nipple measuring 5 x 5 x 2 mm. There is no internal vascular flow. Otherwise there is normal fibronodular breast tissue. Targeted color Doppler ultrasound scanning in the retroareolar region demonstrates normal fibroglandular breast tissue. There is no sonographic abnormality. Results are provided to the patient at time of visit by the technologist. MM/MM tomosynthesis diagnostic BI IMPRESSION: Minimally complicated cyst on ultrasound. Benign. No mammographic or sonographic abnormality to correlate with the patient's left breast pain. Recommend clinical evaluation and follow-up. No mammographic or sonographic abnormality to correlate with the patient's questioned left nipple discharge. Recommend clinical evaluation and follow-up. ASSESSMENT: BI-RADS BI-RADS 2 - Benign Findings RECOMMENDATION: 1 year F/U This patient's information was entered into a reminder system with a target due date for their next mammogram. Electronically signed by: Aura Murphy DO 10/13/2024 10:56 AM EDT
--- OUTSIDE RECORDS SUMMARY | 2024-10-13 10:47 | XMS_ITS | Patient Health Record ---
Author Organization [facility] Address [address] [place] [phone] Care Team Providers Care Rod Mill Tender Name Role Phone JANICE LIZARRAGA, JAKOB Primary [...] Risk Notes Problem Lumbosacral spondylosis without myelopathy (36457033) Spondylosis without myelopathy or radiculopathy, lumbar region (M47.816) Active confirmed Plan Of Treatment No Information Insurance Providers Payer Name Payer Address Payer Phone Subscriber Number Group Number Insured Name Patient Relationship to Insured Coverage Start Date [facility]age End Date [facility] [address] [address] [place] [address] [id number] FRED MARSHALL Self - patient is the insured Medical (General) History Medical History History ICD Code Carpal tunnel Cholecystectomy Calculus of gallbladder Lumbar spondylosis GERD Surgical History Surgery Date(Month/Year) Cholecystectomy 11/2020 Flexible Sigmoidoscopy 03/01/2020 Gastric Band 2012 Esophagogastroduodenscopy 12/07/2016 Gastric Sleeve 03/24/2019 Laparoscopic Appendectomy 2001 Ovarian Cystectomy 2010
--- OUTSIDE RECORDS SUMMARY | 2024-10-13 10:47 | XMS_ITS | Clinical Summary ---
Author Organization [address] [place] [address] Address [address] [place] [address] Phone Care Team Providers Care Industrial Engineering Technician Name Role Phone Jaime Bach MD Primary Care Pr ovider Allergies No known active allergies Medications ferrous sulfate 325 mg (65 mg iron) EC tablet Take 1 Tablet by mouth 2 times daily. 4 Active cyanocobalamin (VITAMIN B-12) 1,000 mcg tablet Take 1 Tablet by mouth every other day. 4 Active tretinoin (RETIN-A) 0.025 % cream APPLY PEA-SIZED AMOUNT TO FACE EVERY OTHER NIGHT AND INCREASE TOLERATED 4 Active cholecalciferol (VITAMIN D-3) 50 mcg (2,000 unit) capsule Take 1 Capsule by mouth daily. 3 Active albuterol HFA (PROAIR HFA ; PROVENTIL HFA ; VENTOLIN HFA) 90 mcg/actuation inhaler Inhale 2 Puffs into the lungs 4 times daily as needed for Cough or Wheezing. 3 Active acetaminophen (TYLENOL 8 HOUR) 650 mg 8 hr tablet Take 1 Tablet by mouth every 8 hours as needed for Pain. 3 Active docusate sodium (COLACE) 100 mg capsule Take 1 Capsule by mouth 2 times daily. 3 Active levonorgestreL (MIRENA) 21 mcg/24hr (up to 8 yrs) 52 mg IUD 1 Each by Intrauterine route once. Active ergocalciferol (VITAMIN D-2) 1,250 mcg (50,000 unit) capsule Take 1 capsule (50,000 Units total) by mouth 1 (one) time per week. 4 each 11 5 026 Active omeprazole (PriLOSEC) [address] capsuleIndicati ons:Gastroesoph ageal reflux disease without esophagitis Take 1 capsule (20 mg total) by mouth 1 (one) time each day. 90 each 1 5 025 Active tirzepatide, weight loss, (Zepbound) 5 mg/0.5 mL injection Inject 0.5 mL (5 mg total) under the skin every 7 (seven) days for 28 days. 2 mL 5 025 Active tirzepatide, weight loss, (Zepbound) 2.5 mg/0.5 mL injection Inject 0.5 mL (2.5 mg total) under the skin every 7 (seven) days. 2 mL 5 025 Active Problems Problem Noted Date Diagnosed Date [...] Encounters Date Type Department Care Team Description 09/25/2024 Telephone Bariatric Surgery - [address] [place] [address] Stephanie Sauceda PA Med Refill (Zepbound) 08/25/2024 12:55 PM EDT - 08/25/2024 11:59 PM EDT Hospital Encounter XRAY - [facility] [address] [place] [address] Discharge Disposition: Home or Self Care 08/25/2024 12:30 PM EDT Consult Orthopedics - [address] [phone] Mazin Sabillon PA Chronic right hip pain (Primary Dx) 08/10/2024 12:34 PM EDT - 08/10/2024 11:59 PM EDT Hospital Encounter XRAY - [facility] [address] [place] [address] Chronic right hip pain Discharge Disposition: Home or Self Care 08/10/2024 12:00 PM EDT Office Visit Adult Medicine [address] [phone] Jaime Bach MD Annual physical exam (Primary [...] right hip pain 07/29/2024 Telephone Bariatric Surgery - [address] [place] [address] Stephanie Sauceda PA from Last 3 Months Immunizations Name Administration Dates Next Due Tdap Tetanus diptheria acell ular pertussis (Boostrix; Adacel) 7yo and older 12/02/2017 Surgical History Surgery Date Site/Laterality Comments OTHER SURGICAL HISTORY 2000 PROCEDURE: [place] LAPAROSCOPIC APPENDECTOMY OVARIAN CYST REMOVAL 2010 PROCEDURE: [place] OVARIAN CYSTECTOMY UNI/BI LAPAROSCOPIC GASTRIC BANDING 2011 PROCEDURE: LAP ADJUSTABLE GASTRIC BAND; COMMENT: fialo ESOPHAGOGASTRODUODENOSCOPY 7 PROCEDURE: WY ESOPHAGOGASTRODUODENOSCOPY TRANSORAL DIAGNOSTIC; COMMENT: tiny erosions at GE junction; tight lap band GASTRIC BYPASS 9 PROCEDURE: [place] GASTRIC RSTCV W/BYP W/SM INT RCNSTJ LIMIT [...] care for your loved ones. For example, children's program coordinator or elderly care for an older [...] Care Team (Late st Contact Info) Description 12/08/2024 3:00 PM EDT Office Visit Bariatric Surgery [facility] [address] [phone] Stephanie Sauceda PA [address] [address] 02/08/2025 9:45 AM EDT Office Visit Adult Medicine [address] [phone] Jaime Bach MD [address] [place] [address] Health Maintenance Due Date Last Done Comments [...] age to complete this topic Meningococcal B Vaccine Aged Out No l onger eligible based on patient's age to complete [...] 1:09 PM EDT Chronic right hip pain [place] ARTHROCENTESIS/ASPIRA TION/INJECTION MAJOR JOINT/BURSA W/O U/S GUIDANCE [...] 12:42 PM EDT Chronic right hip pain HM PAP SMEAR Routine 08/08/2022 HIV SCREENING Routine 03/30/2015 from Last 3 [...] Signed Date: 08/25/2024 13:41 ET Workstation ID: [id number] Transcribed By: Self Edit Transcribed Date: 08/25/2024 [...] Signed Date: 08/25/2024 13:41 ET Workstation ID: [id number] Transcribed By: Self Edit Transcribed Date: 08/25/2024 13:38 ET Mazin MAJOR IMG XR PROCEDURES Final Result * [place]Y ARTHROCENTESIS/ASPIRATION/INJECTION MAJOR JOINT/BURSA W/O U/S GUIDANCE (08/25/2024 [...] ?? Verbal ??Pre-procedure timeout performed: yes ?? Mazin MAJOR IN CLINIC/BEDSIDE ORDERABLES Fin al Result * Hepatitis C antibody (08/11/2024 8:02 AM EDT) Hepatitis C Antibody Negative Negative LAB CHEMISTRY METHOD 08/11/2024 11:31 AM EDT [facility] Blood Venous blood specimen / Unknown Venipuncture / Unknown 08/11/2024 8:02 AM EDT 08/11/2024 8:02 AM EDT Jaime Bach MD LAB BLOOD ORDERA BLES Final Result [facility] [address] [place] [address], [place] [phone] * Thyroid stimulating hormone with reflex to free t4 and free t3 (08/11/2024 8:02 AM EDT) Pathologist [facility] TSH 1.63 0.40 - 4.00 mcIU/mL LAB CHEMISTRY METHOD 08/11/2024 10:52 AM EDT [facility] Blood Venous blood specimen / Unknown Venipuncture / Unknown 08/11/2024 8:02 AM EDT 08/11/2024 8:02 AM EDT Jaime Bach MD LAB BLOOD ORDERA BLES Final Result [facility] [address] [place] [address], [place] [phone] * Lipid panel with reflex to direct LDL (08/11/2024 8:02 AM EDT) [facility] Cholesterol 148 0 - 200 mg/dL LAB CHEMISTRY METHOD 08/11/2024 10:45 AM [facility] Triglycerides 73 0 - 150 mg/dL LAB CHEMISTRY METHOD 08/11/2024 10:45 AM [facility] HDL 59 >=40 mg/dL LAB CHEMISTRY METHOD 08/11/2024 10:45 AM [facility] LDL Calculated 74 0 - 100 mg/dL LAB CHEMISTRY METHOD 08/11/2024 10:45 AM [facility] VLDL Cholesterol Sha 14.6 mg/dL LAB CHEMISTRY METHOD 08/11/2024 10:45 AM [facility] Non HDL Chol. (LDL+VLDL) 89 <145 mg/dL LAB CHEMISTRY METHOD 08/11/2024 10:45 AM [facility] Chol/HDL Ratio 2.5 0.0 - 4.4 LAB CHEMISTRY METHOD 08/11/2024 10:45 AM [facility] Blood Venous blood specimen / Unknown Venipuncture / Unknown 08/11/2024 8:02 AM EDT 08/11/2024 8:02 AM EDT Jaime Bach MD LAB BLOOD ORDERA BLES Final Result [facility] [address] [place] [address], * CBC auto differential (08/11/2024 8:02 AM EDT) WBC 6.9 4.8 - 10.8 K/mcL LAB HEMETOLOGY METHOD 08/11/2024 10:14 AM EDT [facility] RBC 4.00 3.80 - 4.80 M/mcL LAB HEMETOLOGY METHOD 08/11/2024 10:14 AM EDT [facility] Hemoglobin 11.6 11.5 - 16.0 g/dL LAB HEMETOLOGY METHOD 08/11/2024 10:14 AM EDT [facility] Hematocrit 35.4 35.0 - 47.0 % LAB HEMETOLOGY METHOD 08/11/2024 10:14 AM EDT [facility] MCV 89.2 79.0 - 98.0 FL LAB HEMETOLOGY METHOD 08/11/2024 10:14 AM EDT [facility] MCH 29.2 27.0 - 32.0 pcg LAB HEMETOLOGY METHOD 08/11/2024 10:14 AM EDT [facility] MCHC 32.8 32.0 - 37.0 g/dL LAB HEMETOLOGY METHOD 08/11/2024 10:14 AM EDT [facility] RDW 13.4 11.0 - 15.0 % LAB HEMETOLOGY METHOD 08/11/2024 10:14 AM EDT [facility] Platelets 350 130 - 400 K/mcL LAB HEMETOLOGY METHOD 08/11/2024 10:14 AM [facility] MPV 9.9 7.0 - 11.0 FL LAB HEMETOLOGY METHOD 08/11/2024 10:14 AM [facility] NRBC 0.0 <1.0 % LAB HEMETOLOGY METHOD 08/11/2024 10:14 AM [facility] NRBC Absolute 0.00 <0.10 K/mcL LAB HEMETOLOGY METHOD 08/11/2024 10:14 AM [facility] Neutrophils Relative 57.7 % LAB HEMETOLOGY METHOD 08/11/2024 10:14 AM [facility] Lymphocytes Relative 31.2 % LAB HEMETOLOGY METHOD 08/11/2024 10:14 AM [facility] Monocytes Relative 9.7 % LAB HEMETOLOGY METHOD 08/11/2024 10:14 AM [facility] Eosinophils Relative 0.9 % LAB HEMETOLOGY METHOD 08/11/2024 10:14 AM [facility] Basophils Relative 0.4 % LAB HEMETOLOGY METHOD 08/11/2024 10:14 AM [facility] Immature Granulocytes Relative 0.1 % LAB HEMETOLOGY METHOD 08/11/2024 10:14 AM [facility] Neutrophils Absolute 3.99 1.50 - 7.00 K/mcL LAB HEMETOLOGY METHOD 08/11/2024 10:14 AM [facility] Lymphocytes Absolute 2.16 1.00 - 5.00 K/mcL LAB HEMETOLOGY METHOD 08/11/2024 10:14 AM [facility] Monocytes Absolute 0.67 0.20 - 1.00 K/mcL LAB HEMETOLOGY METHOD 08/11/2024 10:14 AM [facility] Eosinophils Absolute 0.06 0.00 - 0.50 K/mcL LAB HEMETOLOGY METHOD 08/11/2024 10:14 AM EDT [facility] Basophils Absolute 0.03 0.00 - 0.20 K/[facility] LAB HEMETOLOGY METHOD 08/11/2024 10:14 AM EDT [facility] Immature Granulocytes Absolute 0.01 0.00 - 0.03 K/[facility] LAB HEMETOLOGY METHOD 08/11/2024 10:14 AM EDT [facility] Blood Venous blood specimen / Unknown Venipuncture / Unknown 08/11/2024 8:02 AM EDT 08/11/2024 8:02 AM EDT Jaime Bach MD LAB BLOOD ORDERA BLES Final Result Performing Organization Address [facility]/ZIP Co de Phone Number [facility] [address] [place] [address], [place] [phone] * Iron and TIBC (08/11/2024 8:02 AM EDT) Iron 92 40 - 150 mcg/dL LAB CHEMISTRY METHOD 08/11/2024 10:45 AM EDT [facility] TIBC 432 250 - 450 mcg/dL LAB CHEMISTRY METHOD 08/11/2024 10:45 AM EDT [facility] Iron Saturation 21 15 - 50 % LAB CHEMISTRY METHOD 08/11/2024 10:45 AM EDT [facility] Blood Venous blood specimen / Unknown Venipuncture / Unknown 08/11/2024 8:02 AM EDT 08/11/2024 8:02 AM EDT Jaime Bach MD LAB BLOOD ORDERA BLES Final Result Performing Organization Address City/[facility]/ZIP Co de Phone Number [facility] [address] [place] [address], [place] [phone] * Hemoglobin A1c (08/11/2024 8:02 AM EDT) Pathologist [facility] Hemoglobin A1C 5.4 <6.5 % LAB CHEMISTRY METHOD 08/11/2024 2:26 PM EDT [facility] Mean Bld Glu Estim. 108 mg/dL LAB CHEMISTRY METHOD 08/11/2024 2:26 PM EDT [facility] Blood Venous blood specimen / Unknown Venipuncture / Unknown 08/11/2024 8:02 AM EDT 08/11/2024 8:02 AM EDT Jaime Bach MD LAB BLOOD ORDERA BLES Final Result Performing Organization Address City/[facility]/ZIP Co de Phone Number [facility] [address] [place] [address], [place] [phone] * Ferritin (08/11/2024 8:02 AM EDT) [facility] Ferritin 15 8 - 252 ng/mL LAB CHEMISTRY METHOD 08/11/2024 10:45 AM EDT [facility] Blood Venous blood specimen / Unknown Venipuncture / Unknown 08/11/2024 8:02 AM EDT 08/11/2024 8:02 AM EDT Jaime Bach MD LAB BLOOD ORDERA BLES Final Result [facility] [address] [place] [address], [place] [phone] * XR Hip 2-3 Views Right (08/10/2024 [...] Signed Date: 08/10/2024 14:33 ET Workstation ID: [id number] Transcribed By: Self Edit Transcribed Date: 08/10/2024 [...] Signed Date: 08/10/2024 14:33 ET Workstation ID: [id number] Transcribed By: Self Edit Transcribed Date: 08/10/2024 14:33 ET Jaime Bach MD IMG XR PROCEDURE S Final Result * Pap Smear (08/08/2022) Pap smear no interpretation , abstracted Historical Provider HEALTH MAINTENANCE Final Result * HIV Screening (03/30/2015) HIV Screening abstracted Historical Provider HEALTH MAINTENANCE Final Result from Last 3 Months or Most Recently Relevant to Health Maintenance Insurance [facility] Care Teams Industrial Engineering Technician Relationship Specialty Start Date End Date Jaime Bach MD [address] [place] [phone] PCP - General Internal Medicine 06/04/24
--- OUTSIDE RECORDS SUMMARY | 2024-10-13 10:47 | XMS_ITS | Encounter Summary ---
Author Organization [facility] Address [address] [place] [address] Care Team Providers Care Fruit Dumper Name Role Phone Jaime Bach MD Primary Care Pr ovider Reason for Visit * Reason Onset Date Comments Med Refill 09/25/2024 Zepbound Encounter Details Date Type Department Care Team (Late st Contact Info) Description 09/25/2024 Telephone Bariatric Surgery - [place] [address] [facility] [address] [facility] [address] [place] [phone] Stephanie Sauceda PA [address] [facility] [address] [facility] [address] [place] [address] Med Refill (Zepbound) Social History Tobacco Use Types Packs/Day Years [...] your loved ones. For example, early childhood lead teacher or elderly care for an older [...] as of this encounter Progress Notes * Brenda Florian - 09/25/2024 9:55 AM EDT Patient did well on Zepbound 2.5 mgs and would like a refill with titration. If appropriate, please send script for Zepbound 5 mgs to their pharmacy. The patient does have a follow up in 12/08/2024 documented in this encounter Plan of Treatment Upcoming Encounters Date Type Department Care Team (Late st Contact Info) Description 12/08/2024 3:00 PM EDT Office Visit Bariatric Surgery - [place] [address] [facility] [address] [place] [address] Stephanie Sauceda PA [address] [facility] [address] [place] [address] 02/08/2025 9:45 AM EDT Office Visit Adult Medicine [facility] [address] [place] [phone] Jaime Bach MD [address] [place] [phone] documented as of this encounter Visit Diagnoses Not on filedocumented in this encounter Additional Health Concerns Assessment Noted Time PHQ-9 Depression Total Score: 8 08/11/19 25 12:29 PM EDT documented as of this encounter Care Teams Fruit Dumper Relationship Specialty Start Date End Date Jaime Bach MD [address] [place] [phone] PCP - General Internal Medicine 06/04/24 documented as of this encounter
== END 2024-10-13 09:56 | disposition home or self-care (01) ==
LOC: HO.MAMMO 09:55
PROVIDERS: Visit Provider Advanced Practice Midwife
DX: N64.4 Mastodynia (principal)
CPT/HCPCS: 76642; 77062; 77066

== ENCOUNTER → 2024-10-13 10:00 | Outpatient (BNV) | payer OTHER, SELFPAY | PROVIDERS: Visit Provider Internal Medicine | DX: N60.02 Solitary cyst of left breast (principal); N64.4 Mastodynia | CPT/HCPCS: 76642; 77062; 77066 ==